=== PATIENT | male | born 1950 | race Caucasian/White ===

== ENCOUNTER 2016-08-27 13:37 | Inpatient (IN) | payer BC ==
[2016-08-27] MEDS ORDERED: Sodium Chloride 0.9% 2.5 ML Syringe FLUSH PRN ×2 (14:07)
[2016-08-27] MEDS ORDERED: Sodium Chloride 0.9% 10 ML Syringe FLUSH PRN ×2 (14:07)
[2016-08-27] MEDS ORDERED: Sodium Chloride 0.9% 1,000 ML IV ONE ×3 (14:07→15:25)
[2016-08-27 14:25] LABS: CHLORIDE,CL 102 mmol/L (98-110); SODIUM,NA 137 mmol/L (136-146)
[2016-08-27] MEDS ORDERED: Acetaminophen 500 MG Tab PO ONE (14:33)
--- NOTE | 2016-08-27 15:09 | EDM.PDOC ---
ED HPI GENERAL MEDICAL PROBLEM - General Chief Complaint: General Stated Complaint: PT WOULD LIKE TO GET CHECK(SICK) Time Seen by Provider: 08/27/16 14:14 Source of Information: Reports: Patient, Significant Other History Limitations: Reports: No limitations - History of Present Illness INITIAL COMMENTS - FREE TEXT/NARRATIVE: HISTORY AND PHYSICAL: History of present illness: [Patient is a 65-year-old male with a past medical history prostate cancer last chemotherapy treatment 3 weeks ago now comes to the emergency department complaining of fever and chills today. Patient denies headache or stiff neck productive cough or abdominal pain. He does not have flank pain. patient was told yesterday that he has urinary tract infection during a visit to his urologist and he was started on an antibiotic that he can't remember the name of. Symptoms worsening today. Patient self catheterizes himself because of a high urine residual. He is only able to spontaneously put out a small amount of urine. Review of systems: As per history of present illness and below otherwise all systems reviewed and negative. Past medical history: As per history of present illness and as reviewed below otherwise noncontributory. Surgical history: As per history of present illness and as reviewed below otherwise noncontributory. Social history: No reported history of drug or alcohol abuse. Family history: As per history of present illness and as reviewed below otherwise noncontributory. Physical exam: Fatigued appearing patient/ nad HEENT: Atraumatic, normocephalic, pupils reactive, negative for conjunctival pallor or scleral icterus, mucous membranes I, throat clear, neck supple, nontender, trachea midline. Lungs: Clear to auscultation, breath sounds equal bilaterally, chest nontender. Heart: S1S2, regular, negative for clicks, rubs, or JVD. Tachycardia at 150 a flutter with 21 block on monitor and EKG Abdomen: Soft, nondistended, nontender. Negative for masses or hepatosplenomegaly. Negative for costovertebral tenderness. Pelvis: Stable nontender. Genitourinary: Deferred. Rectal: Deferred. Extremities: Atraumatic, negative for cords or calf pain. Neurovascular unremarkable. Neuro: Awake, alert, oriented. cranial nerves grossly intact. Cerebellum unremarkable. Motor and sensory unremarkable throughout. Exam nonfocal. Diagnostics: [] Therapeutics: [] Impression: [] Plan: [] Definitive disposition and diagnosis as appropriate pending reevaluation and review of above. - Related Data Allergies Allergy/AdvReac Type Severity Reaction Status Date / Time No Known Allergies Allergy Verified 08/27/16 13:45 Past Medical History Oncologic (Cancer) History: Reports: Prostate, Other (see below) Other Oncologic History: undergoing chemo treatment - Past Surgical History HEENT Surgical History: Reports: Other (see below) Other HEENT Surgeries/Procedures: Ear surgery Social & Family History - Family History Family Medical History: Noncontributory - Tobacco Use Smoking Status *Q: Never Smoker - Recreational Drug Use Recreational Drug Use: No ED ROS GENERAL - Review of Systems Review Of Systems: See Below (Per history of present illness) ED EXAM, GENERAL - Physical Exam Exam: See Below (Per history of present illness) Course - Vital Signs Text/Narrative:: Signs and symptoms consistent with Serzone sepsis. A flutter resolved to normal sinus rhythm with tachycardia improved beneath 120 after 2 L of IV fluid. Fluids continuing. Cultures pending. Urinalysis negative for infection. Empiric coverage for sepsis of unknown origin initiated. Patient aware that his random blood glucose of 296 is consistent with new onset type 2 diabetes. By mouth metformin given. Case discussed with Dr. Moffett and his resident aware of findings and agree with Zosyn vancomycin coverage or sepsis of unknown cause. Patient stable on multiple reexams. Chest x-ray interpreted by me shows chronic changes with mild atelectasis no infiltrate, no acute disease. Initial EKG upon arrival at 1:42 PM atrial flutter with 21 block rate of 150. Normal axis. Nonspecific ST and T-wave findings. No STEMI Repeat EKG at 1646 normal sinus tachycardia at 119. Normal axis no STEMI. Critical care 74 minutes. Multiple bedside reevaluation with close surveillance following improvement tachycardia with IV fluid administration and following clinical status the patient with tachycardia acidosis Serzone sepsis to rule out evolving septic shock and hemodynamic instability Last Recorded V/S: Last Vital Signs Temp 38.1 C 08/27/16 17:28 Pulse 78 08/27/16 17:28 Resp 16 08/27/16 17:28 BP 116/78 08/27/16 17:28 Pulse Ox 98 08/27/16 17:28 - Orders/Labs/Meds Orders: Active Orders 24 hr Category Date Time Status EKG Documentation Completion [RC] STAT Care 08/27/16 14:07 Active Wen Catheter Insertion [Insert Urinary Catheter] [OM. Care 08/27/16 14:15 Ordered PC] Q24H Peripheral IV Care [RC] . DIRECTED Care 08/27/16 14:07 Active Urinary Catheter Assessment [RC] ASDIRECTED Care 08/27/16 14:10 Active CULTURE BLOOD [BC] Stat Lab 08/27/16 14:19 Received CULTURE BLOOD [BC] Stat Lab 08/27/16 14:31 Received Sodium Chloride 0.9% [Saline Flush] Med 08/27/16 14:07 Active 10 ml FLUSH ASDIRECTED PRN Sodium Chloride 0.9% [Saline Flush] Med 08/27/16 14:07 Active 2.5 ml FLUSH ASDIRECTED PRN Blood Culture x2 Reflex Set [OM.PC] Stat Oth 08/27/16 14:09 Ordered Peripheral IV Insertion Adult [OM.PC] Stat Oth 08/27/16 14:07 Ordered Medication Orders Acetaminophen (Tylenol) 650 mg PO Q6H PRN PRN Reason: Pain Enoxaparin Sodium (Lovenox) 40 mg SUBCUT DAILY TARAH Sodium Chloride (Normal Saline) 1,000 mls @ 175 mls/hr IV ASDIRECTED TARAH Levofloxacin/Dextrose 750 mg/ (Premix) 150 mls @ 100 mls/hr IV Q24H TARAH Piperacillin Sod/Tazobactam (Sod 3.375 gm/ Sodium Chloride) 50 mls @ 100 mls/ hr IV Q6H TARAH Vancomycin HCl 1,500 mg/ (Sodium Chloride) 500 mls @ 333.333 mls/hr IV Q12H TARAH Magnesium Sulfate 4 gm/ Premix 100 mls @ 50 mls/hr IV ONETIME ONE Stop: 08/27/16 18:54 Insulin Aspart (Novolog) 0 unit SUBCUT TIDAC TARAH PRN Reason: Protocol Ondansetron HCl (Zofran) 4 mg IVPUSH Q4H PRN PRN Reason: Nausea Sodium Chloride (Saline Flush) 10 ml FLUSH ASDIRECTED PRN PRN Reason: Keep Vein Open Last Admin: 08/27/16 14:38 Dose: 10 ml Sodium Chloride (Saline Flush) 2.5 ml FLUSH ASDIRECTED PRN PRN Reason: Keep Vein Open Last Admin: 08/27/16 14:38 Dose: 2.5 ml Vancomycin HCl (Pharmacy To Dose - Vancomycin) 1 dose .XX ASDIRECTED [facility] Labs: Laboratory Tests 08/27/16 08/27/16 08/27/16 Range/Units 13:52 13:52 13:52 WBC 19.38 H (4.0-11.0) K/uL RBC 4.44 L (4.50-5.90) M/uL Hgb 12.6 L (13.0-17.0) g/dL Hct 38.4 (38.0-50.0) % MCV 86.5 (80.0-98.0) fL MCH 28.4 (27.0-32.0) pg MCHC 32.8 (31.0-37.0) g/dL RDW Std Deviation 54.2 (28.0-62.0) fl RDW Coeff of Silvia 17 H (11.0-15.0) % Plt Count 264 (150-400) K/uL MPV 9.20 (7.40-12.00) fL Neut % (Auto) 93.2 H (48.0-80.0) % Lymph % (Auto) 6.0 L (16.0-40.0) % [place] % (Auto) 0.5 (0.0-15.0) % Eos % (Auto) 0.1 (0.0-7.0) % Baso % (Auto) 0.2 (0.0-1.5) % Neut # 18.1 H (1.4-5.7) K/uL Lymph # 1.2 (0.6-2.4) K/uL [place] # 0.1 (0.0-0.8) K/uL Eos # 0.0 (0.0-0.7) K/uL Baso # 0.0 (0.0-0.1) K/uL Nucleated RBC % 0.0 /100WBC Nucleated RBCs # 0 K/uL Lactate (0.20-2.00) mmol/L Sodium 137 (136-146) mmol/L Potassium 4.2 (3.5-5.1) mmol/L Chloride 102 (98-110) mmol/L Carbon Dioxide 19 L (21-31) mmol/L BUN 16 (6.0-23.0) mg/dL Creatinine 1.2 (0.6-1.5) mg/dL Est Cr Clr Drug Dosing 60.96 mL/min Estimated GFR (MDRD) > 60.0 ml/min Glucose 296 H (60-110) mg/dL Hemoglobin A1c (0.0-6.0) % Calcium 9.6 (8.8-10.8) mg/dL Magnesium (1.5-2.3) mEq/L Total Bilirubin 0.4 (0.1-1.5) mg/dL AST 21 (5-40) IU/L ALT 23 (8-54) IU/L Alkaline Phosphatase 127 (40-150) Troponin I < 0.10 (0.0-0.29) NG/ML Total Protein 8.3 H (6.0-8.0) g/dL Albumin 4.2 (3.4-4.8) g/dL Globulin 4.1 H (2.0-3.5) g/dL Albumin/Globulin Ratio 1.0 L (1.3-2.8) Urine Color Urine Appearance Urine pH (5.0-8.0) Ur Specific [place] (1.001-1.035) Urine Protein (NEGATIVE) mg/dL Urine Glucose (UA) (NEGATIVE) mg/dL Urine Ketones (NEGATIVE) mg/dL Urine Occult Blood (NEGATIVE) Urine Nitrite (NEGATIVE) Urine Bilirubin (NEGATIVE) Urine Urobilinogen (<2.0) EU/dL Ur Leukocyte Esterase (NEGATIVE) Urine RBC (0-2/HPF) Urine WBC (0-5/HPF) Ur Epithelial Cells (NONE-FEW) Urine Bacteria (NEGATIVE) 08/27/16 08/27/16 08/27/16 Range/Units 13:52 13:52 14:05 WBC (4.0-11.0) K/uL RBC (4.50-5.90) M/uL Hgb (13.0-17.0) g/dL Hct (38.0-50.0) % MCV (80.0-98.0) fL MCH (27.0-32.0) pg MCHC (31.0-37.0) g/dL RDW Std Deviation (28.0-62.0) fl RDW Coeff of Silvia (11.0-15.0) % Plt Count (150-400) K/uL MPV (7.40-12.00) fL Neut % (Auto) (48.0-80.0) % Lymph % (Auto) (16.0-40.0) % [place] % (Auto) (0.0-15.0) % Eos % (Auto) (0.0-7.0) % Baso % (Auto) (0.0-1.5) % Neut # (1.4-5.7) K/uL Lymph # (0.6-2.4) K/uL [place] # (0.0-0.8) K/uL Eos # (0.0-0.7) K/uL Baso # (0.0-0.1) K/uL Nucleated RBC % /100WBC Nucleated RBCs # K/uL Lactate (0.20-2.00) mmol/L Sodium (136-146) mmol/L Potassium (3.5-5.1) mmol/L Chloride (98-110) mmol/L Carbon Dioxide (21-31) mmol/L BUN (6.0-23.0) mg/dL Creatinine (0.6-1.5) mg/dL Est Cr Clr Drug Dosing mL/min Estimated GFR (MDRD) ml/min Glucose (60-110) mg/dL Hemoglobin A1c 10.1 H (0.0-6.0) % Calcium (8.8-10.8) mg/dL Magnesium 1.2 L (1.5-2.3) mEq/L Total Bilirubin (0.1-1.5) mg/dL AST (5-40) IU/L ALT (8-54) IU/L Alkaline Phosphatase (40-150) Troponin I (0.0-0.29) NG/ML Total Protein (6.0-8.0) g/dL Albumin (3.4-4.8) g/dL Globulin (2.0-3.5) g/dL Albumin/Globulin Ratio (1.3-2.8) Urine Color YELLOW Urine Appearance SLT CLOUDY Urine pH 5.0 (5.0-8.0) Ur Specific [place] 1.025 (1.001-1.035) Urine Protein TRACE (NEGATIVE) mg/dL Urine Glucose (UA) >=1000 (NEGATIVE) mg/dL Urine Ketones NEGATIVE (NEGATIVE) mg/dL Urine Occult Blood TRACE-INTACT (NEGATIVE) Urine Nitrite NEGATIVE (NEGATIVE) Urine Bilirubin NEGATIVE (NEGATIVE) Urine Urobilinogen 0.2 (<2.0) EU/dL Ur Leukocyte Esterase NEGATIVE (NEGATIVE) Urine RBC 1-2 (0-2/HPF) Urine WBC 5-10 (0-5/HPF) Ur Epithelial Cells RARE (NONE-FEW) Urine Bacteria FEW (NEGATIVE) 08/27/16 Range/Units 14:19 WBC (4.0-11.0) K/uL RBC (4.50-5.90) M/uL Hgb (13.0-17.0) g/dL Hct (38.0-50.0) % MCV (80.0-98.0) fL MCH (27.0-32.0) pg MCHC (31.0-37.0) g/dL RDW Std Deviation (28.0-62.0) fl RDW Coeff of Silvia (11.0-15.0) % Plt Count (150-400) K/uL MPV (7.40-12.00) fL Neut % (Auto) (48.0-80.0) % Lymph % (Auto) (16.0-40.0) % [place] % (Auto) (0.0-15.0) % Eos % (Auto) (0.0-7.0) % Baso % (Auto) (0.0-1.5) % Neut # (1.4-5.7) K/uL Lymph # (0.6-2.4) K/uL [place] # (0.0-0.8) K/uL Eos # (0.0-0.7) K/uL Baso # (0.0-0.1) K/uL Nucleated RBC % /100WBC Nucleated RBCs # K/uL Lactate 3.3 H (0.20-2.00) mmol/L Sodium (136-146) mmol/L Potassium (3.5-5.1) mmol/L Chloride (98-110) mmol/L Carbon Dioxide (21-31) mmol/L BUN (6.0-23.0) mg/dL Creatinine (0.6-1.5) mg/dL Est Cr Clr Drug Dosing mL/min Estimated GFR (MDRD) ml/min Glucose (60-110) mg/dL Hemoglobin A1c (0.0-6.0) % Calcium (8.8-10.8) mg/dL Magnesium (1.5-2.3) mEq/L Total Bilirubin (0.1-1.5) mg/dL AST (5-40) IU/L ALT (8-54) IU/L Alkaline Phosphatase (40-150) Troponin I (0.0-0.29) NG/ML Total Protein (6.0-8.0) g/dL Albumin (3.4-4.8) g/dL Globulin (2.0-3.5) g/dL Albumin/Globulin Ratio (1.3-2.8) Urine Color Urine Appearance Urine pH (5.0-8.0) Ur Specific [place] (1.001-1.035) Urine Protein (NEGATIVE) mg/dL Urine Glucose (UA) (NEGATIVE) mg/dL Urine Ketones (NEGATIVE) mg/dL Urine Occult Blood (NEGATIVE) Urine Nitrite (NEGATIVE) Urine Bilirubin (NEGATIVE) Urine Urobilinogen (<2.0) EU/dL Ur Leukocyte Esterase (NEGATIVE) Urine RBC (0-2/HPF) Urine WBC (0-5/HPF) Ur Epithelial Cells (NONE-FEW) Urine Bacteria (NEGATIVE) Meds: Medications Generic Name Dose Route Start Last Admin Trade Name Freq PRN Reason Stop Dose Admin Acetaminophen 650 mg 08/27/16 16:39 Tylenol PO Q6H PRN Pain Enoxaparin Sodium 40 mg 08/27/16 16:30 Lovenox SUBCUT DAILY [facility] Sodium Chloride 1,000 mls @ 175 mls/hr 08/27/16 16:30 Normal Saline IV ASDIRECTED [facility] Levofloxacin/Dextrose 750 mg/ 150 mls @ 100 mls/hr 08/27/16 16:45 Premix IV Q24H TARAH Piperacillin Sod/Tazobactam 50 mls @ 100 mls/hr 08/27/16 22:30 Sod 3.375 gm/ Sodium Chloride IV Q6H TARAH Vancomycin HCl 1,500 mg/ 500 mls @ 333.333 mls/hr 08/27/16 17:00 Sodium Chloride IV Q12H TARAH Magnesium Sulfate 4 gm/ Premix 100 mls @ 50 mls/hr 08/27/16 16:55 IV 08/27/16 18:54 ONETIME ONE Insulin Aspart 0 unit 08/27/16 17:00 Novolog SUBCUT TIDAC [facility] Protocol Ondansetron HCl 4 mg 08/27/16 16:27 Zofran IVPUSH Q4H PRN Nausea Sodium Chloride 10 ml 08/27/16 14:07 08/27/16 14:38 Saline Flush FLUSH 10 ml ASDIRECTED PRN Administration Keep Vein Open Sodium Chloride 2.5 ml 08/27/16 14:07 08/27/16 14:38 Saline Flush FLUSH 2.5 ml ASDIRECTED PRN Administration Keep Vein Open Vancomycin HCl 1 dose 08/27/16 16:45 Pharmacy To Dose - Vancomycin .XX ASDIRECTED [facility] Discontinued Medications Generic Name Dose Route Start Last Admin Trade Name Freq PRN Reason Stop Dose Admin Acetaminophen 1,000 mg 08/27/16 14:33 08/27/16 14:37 Tylenol Extra Strength PO 08/27/16 14:34 1,000 mg ONETIME ONE Administration Sodium Chloride 1,000 mls @ 999 mls/hr 08/27/16 14:07 08/27/16 14:15 Normal Saline IV 08/27/16 15:07 999 mls/hr .Bolus ONE Administration Sodium Chloride 1,000 mls @ 999 mls/hr 08/27/16 14:08 08/27/16 14:39 Normal Saline IV 08/27/16 15:08 999 mls/hr STAT ONE Administration Piperacillin Sod/Tazobactam 100 mls @ 100 mls/hr 08/27/16 15:23 08/27/16 16: 22 Sod 4.5 gm/ Sodium Chloride IV 08/27/16 16:22 100 mls/hr ONETIME ONE Administration Vancomycin HCl 1,000 mg/ 250 mls @ 167 mls/hr 08/27/16 15:24 08/27/16 17:26 Dextrose/Water IV 08/27/16 16:53 Not Given ONETIME ONE Sodium Chloride 1,000 mls @ 999 mls/hr 08/27/16 15:25 08/27/16 16:23 Normal Saline IV 08/27/16 16:25 999 mls/hr STAT ONE Administration Vancomycin HCl 1 gm/ Sodium 250 mls @ 167 mls/hr 08/27/16 16:30 08/27/16 17: 27 Chloride IV 08/27/16 17:59 Not Given ONETIME ONE Metformin HCl 500 mg 08/27/16 16:09 08/27/16 17:25 Glucophage PO 08/27/16 16:10 Not Given ONETIME ONE Sodium Chloride 2.5 ml 08/27/16 14:07 08/27/16 14:39 Saline Flush FLUSH 2.5 ml ASDIRECTED PRN Administration Keep Vein Open Sodium Chloride 10 ml 08/27/16 14:07 08/27/16 14:39 Saline Flush FLUSH 10 ml ASDIRECTED PRN Administration Keep Vein Open Departure - Departure Time of Disposition: 15:32 Disposition: Admitted As Inpatient 68 Condition: poor Clinical Impression: Fever, Systemic inflammatory response syndrome (SIRS), Sepsis, Tachycardia, New onset atrial flutter, New onset type 2 diabetes mellitus, Leukocytosis - My Orders Last 24 Hours: My Active Orders 08/27/16 14:07 EKG Documentation Completion [RC] STAT Peripheral IV Care [RC] . DIRECTED Sodium Chloride 0.9% [Saline Flush] 10 ml FLUSH ASDIRECTED PRN Sodium Chloride 0.9% [Saline Flush] 2.5 ml FLUSH ASDIRECTED PRN Peripheral IV Insertion Adult [OM.PC] Stat 08/27/16 14:09 Blood Culture x2 Reflex Set [OM.PC] Stat 08/27/16 14:10 Urinary Catheter Assessment [RC] ASDIRECTED 08/27/16 14:15 Wen Catheter Insertion [Insert Urinary Catheter] [OM.PC] Q24H 08/27/16 14:19 CULTURE BLOOD [BC] Stat 08/27/16 14:31 CULTURE BLOOD [BC] Stat - Assessment/Plan Last 24 Hours: My Active Orders 08/27/16 14:07 EKG Documentation Completion [RC] STAT Peripheral IV Care [RC] . DIRECTED Sodium Chloride 0.9% [Saline Flush] 10 ml FLUSH ASDIRECTED PRN Sodium Chloride 0.9% [Saline Flush] 2.5 ml FLUSH ASDIRECTED PRN Peripheral IV Insertion Adult [OM.PC] Stat 08/27/16 14:09 Blood Culture x2 Reflex Set [OM.PC] Stat 08/27/16 14:10 Urinary Catheter Assessment [RC] ASDIRECTED 08/27/16 14:15 Wen Catheter Insertion [Insert Urinary Catheter] [OM.PC] Q24H 08/27/16 14:19 CULTURE BLOOD [BC] Stat 08/27/16 14:31 CULTURE BLOOD [BC] Stat
[2016-08-27] MEDS ORDERED: Piperacillin/Tazobactam 4.5 GM in Sodium Chloride 0.9% 100 ML IV ONE (15:23)
[2016-08-27] MEDS ORDERED: Enoxaparin 40 MG/0.4 ML Syringe SUBCUT SCH (16:30)
[2016-08-27] MEDS: metFORMIN 500 MG Tab PO ONE ×2 (16:31→17:25)
--- NOTE | 2016-08-27 16:42 | PCM.HP ---
H&P History of Present Illness - General Date of Service: 08/27/16 Admit Problem/Dx: Admission Diagnosis/Problem Admission Diagnosis/Problem Fever Source of Information: Patient History Limitations: Reports: No limitations - History of Present Illness Initial Comments - Free Text/Narative: This 65 year old male with pmh of metastatic prostate ca presented to the ED today with fever and chills. He reports he was feeling well until approximately noon today when he started having uncontrollable chills at work. He was recently seen by his Urologist, Dr Lion who obtained a UA and called him yesterday stating something grew on his urine culture. He was started on Bactrim , he has taken 3 doses of this prior to today. He denies any chest pain, palpitations, abdominal pain or urinary symptoms. He does self-catheterize multiple times daily, if he urinates on his own he only gets approximately 50 - 100 mls. He denies any recent URI or fever prior to today. No sore throat of sinus congestion. He feels his mouth is very dry. He did have some SOB when he was having chills. He denies any skin rashes or red warm or open areas to his skin. On August 04 he had his last chemotherapy. He does not have any port or PICC line in place. In the ED, leukocytosis was noted, 19,380, hgb 12.6, lactate 3.3, Na 137, K+ 4.2 , glucose 296. Ua trace blood, negative nitrite, and negative leukocyte esterase , few bacteria. CXR pending. Did have chest, abd/pelvis CT 08/23/2016, chest revealed minimal dependent atelectasis in posterior lung bases, no infiltrates, nodules or masses. Abd/ pelvis noted multiple sclerotic foci in pelvis suspicious for metastatic disease to bone. He will be admitted to ICU for sepsis, fever suspect UTI. - Related Data Allergies/Adverse Reactions: Allergies Allergy/AdvReac Type Severity Reaction Status Date / Time No Known Allergies Allergy Verified 08/27/16 13:45 Past Medical History Cardiovascular History: Reports: Hypertension. Denies: Afib, Blood clots/VTE/ DVT, CAD, Heart Failure, High cholesterol, ID Respiratory History: Reports: None. Denies: Asthma, COPD Gastrointestinal History: Reports: GERD. Denies: GI bleed Genitourinary History: Reports: Prostate disorder, Other (see below) (self catheterizes due to prostate ca). Denies: Chronic renal insuffiency Musculoskeletal History: Reports: None Neurological History: Denies: CVA, Seizure, TIA Psychiatric History: Reports: None Endocrine/Metabolic History: Reports: Obesity/BMI 30+. Denies: Diabetes, type II, Hypothyroidism Oncologic (Cancer) History: Reports: Prostate (last chemo Aug 04, 2016) - Past Surgical History HEENT Surgical History: Reports: Other (see below) Other HEENT Surgeries/Procedures: Ear surgery Social & Family History - Family History Family Medical History: Noncontributory - Tobacco Use Smoking Status *Q: Never Smoker - Recreational Drug Use Recreational Drug Use: No - Living Situation & Occupation Living situation: Reports: Occupation: employed H&P Review of Systems - Review of Systems: Review Of Systems: See Below General: Reports: fever, chills, malaise HEENT: Reports: other (dry mouth). Denies: sinus congestion, sore throat Pulmonary: Reports: Shortness of Breath (had grace SOB with episode of chills ). Denies: Pleuritic Chest Pain, Cough, Sputum Cardiovascular: Denies: chest pain, palpitations, edema, syncope Gastrointestinal: Reports: Constipation (at baseline). Denies: Abdominal pain, Black stool, Bloody stool, Diarrhea, Nausea, Vomiting Genitourinary: Reports: retention (self catheterizes). Denies: dysuria, frequency, burning, pain, flank pain Musculoskeletal: Reports: joint pain (L hip/pelvic pain intermittently recently. ) Skin: Reports: no symptoms. Denies: bruising, rash, erythema Psychiatric: Reports: no symptoms Neurological: Reports: No Symptoms. Denies: Confusion, Headache, Numbness, Paresthesia, Trouble Speaking Hematologic/Lymphatic: Reports: no symptoms Immunologic: Reports: no symptoms Exam - Exam Exam: See Below - Vital Signs Vital Signs: Last Vital Signs Temp 102.7 F H 08/27/16 15:09 Pulse 78 08/27/16 15:09 Resp 16 08/27/16 15:09 BP 137/77 08/27/16 15:09 Pulse Ox 98 08/27/16 15:09 Weight: 92.986 kg - Exam Quality Assessment: supplemental oxygen General: alert, oriented, cooperative HEENT: Nares patent, Posterior pharynx clear, Pupils equal. No: Mucosa moist & pink (tongue dry and cracked, lips dry and cracked) Neck: supple, trachea midline, 2+ carotid pulse wo bruit, full range of motion. No: lymphadenopathy Lungs: Clear to auscultation, Normal respiratory effort. No: Decreased breath sounds, Crackles Cardiovascular: irregular rhythm, tachycardia. No: systolic murmur Abdomen: normal bowel sounds, soft. No: organomegaly, distention, rigidity, rebound, tenderness, hepatomegaly, splenomegaly Back Exam: normal inspection, full range of motion, NT Extremities: normal inspection, normal pulses. No: calf tenderness, edema, increased warmth Peripheral Pulses: 2+: posterior tibial (L), posterior tibial (R), dorsalis pedis (L), dorsalis pedis (R) Skin: warm, dry, intact Neuro Extensive - Mental Status: alert, oriented x3, normal mood/affect, normal cognition, memory intact Psychiatric: alert, normal affect, normal mood - Patient Data Result Diagrams: 08/27/16 13:52 08/27/16 13:52 EKG INTERPRETATION EKG Date: 08/27/16 Rhythm: a-flutter Rate (beats/min): 150 *Q Meaningful Use (ADM) - VTE *Q VTE Criteria *Q: - VTE Risk Assess *Q Each Risk Factor Represents 1 Point: Sepsis, Less than 1 Month, Oral Contraceptives or Hormone Replacement Therapy Total Score 1 Point Risk Factors: 2 Each Risk Factor Represents 2 Points: Age 60 - 74 Years Total Score 2 Point Risk Factors: 2 Each Risk Factor Represents 3 Points: Present Cancer or Chemotherapy Total Score 3 Point Risk Factors: 3 Each Risk Factor Represents 5 Points: None Total Score 5 Point Risk Factors: 0 Venous Thromboembolism Risk Factor Score *Q: 7 - Stroke *Q Stroke Criteria *Q: - AMI *Q AMI Criteria *Q: Problem List Initiated/Reviewed/Updated: Yes Orders Last 24hrs: Active Orders 24 hr Category Date Time Status Blood Glucose Check, Bedside [] TIDAC Care 08/27/16 16:36 Ordered Cardiac Monitoring [] CONTINUOUS Care 08/27/16 16:28 Ordered Height and Weight [] DAILY Care 08/27/16 16:27 Ordered Intake and Output [] QSHIFT Care 08/27/16 16:28 Ordered Oxygen Therapy [] PRN Care 08/27/16 16:27 Ordered Up ad Johanna [RC] ASDIRECTED Care 08/27/16 16:27 Ordered Up to Chair [RC] ASDIRECTED Care 08/27/16 16:27 Ordered VTE/DVT Education [RC] PER UNIT ROUTINE Care 08/27/16 16:27 Ordered Vital Signs [RC] Q4H Care 08/27/16 16:27 Ordered Regular Diet [DIET] Diet 08/27/16 Dinner Ordered CBC WITH AUTO DIFF [HEME] AM Lab 08/28/16 05:11 Ordered CBC WITH AUTO DIFF [HEME] AM Lab 08/29/16 05:11 Ordered CBC WITH AUTO DIFF [HEME] AM Lab 08/30/16 05:11 Ordered CBC WITH AUTO DIFF [HEME] AM Lab 08/31/16 05:11 Ordered COMPREHENSIVE METABOLIC PN,CMP [CHEM] AM Lab 08/28/16 05:11 Ordered COMPREHENSIVE METABOLIC PN,CMP [CHEM] AM Lab 08/29/16 05:11 Ordered COMPREHENSIVE METABOLIC PN,CMP [CHEM] AM Lab 08/30/16 05:11 Ordered COMPREHENSIVE METABOLIC PN,CMP [CHEM] AM Lab 08/31/16 05:11 Ordered CULTURE SPUTUM + SMEAR [RM] Stat Lab 08/27/16 16:27 Uncollected CULTURE URINE [RM] Stat Lab 08/27/16 16:27 Ordered GLYCOSYLATED HEMOGLOBIN,HGBA1C [CHEM] Routine Lab 08/27/16 16:27 Ordered MAGNESIUM [CHEM] Routine Lab 08/27/16 16:31 Ordered Enoxaparin [Lovenox] Med 08/27/16 16:30 Ordered 40 mg SUBCUT DAILY Insulin Aspart [NovoLOG] Med 08/27/16 17:00 Ordered See Protocol SUBCUT TIDAC Levofloxacin/Dextrose 5%-Water [Levaquin in D5W 750 MG/ Med 08/27/16 16:45 Ordered 150 ML] 750 mg Premix Bag 1 bag IV Q24H Ondansetron [Zofran] Med 08/27/16 16:27 Ordered 4 mg IVPUSH Q4H PRN Piperacillin/Tazobactam [Piperacil-Tazobact] 3.375 gm Med 08/27/16 22:30 Ordered Sodium Chloride 0.9% [Normal Saline] 50 ml IV Q6H Sodium Chloride 0.9% [Normal Saline] 1,000 ml Med 08/27/16 16:30 Ordered IV ASDIRECTED Vancomycin Pharmacy to Dose [Pharmacy to Dose - Med 08/27/16 16:45 Ordered Vancomycin] 1 dose .XX ASDIRECTED Vancomycin [Vancocin] 1 gm Med 08/27/16 16:30 Active Sodium Chloride 0.9% [Normal Saline] 250 ml IV ONETIME Resuscitation Status Routine Resus Stat 08/27/16 16:27 Ordered Medication Orders Enoxaparin Sodium (Lovenox) 40 mg SUBCUT DAILY [facility] Vancomycin HCl 1 gm/ Sodium (Chloride) 250 mls @ 167 mls/hr IV ONETIME ONE Stop: 08/27/16 17:59 Sodium Chloride (Normal Saline) 1,000 mls @ 175 mls/hr IV ASDIRECTED [facility] Levofloxacin/Dextrose 750 mg/ (Premix) 150 mls @ 100 mls/hr IV Q24H [facility] Piperacillin Sod/Tazobactam (Sod 3.375 gm/ Sodium Chloride) 50 mls @ 100 mls/ hr IV Q6H [facility] Insulin Aspart (Novolog) 0 unit SUBCUT TIDAC TARAH PRN Reason: Protocol Ondansetron HCl (Zofran) 4 mg IVPUSH Q4H PRN PRN Reason: Nausea Sodium Chloride (Saline Flush) 10 ml FLUSH ASDIRECTED PRN PRN Reason: Keep Vein Open Last Admin: 08/27/16 14:38 Dose: 10 ml Sodium Chloride (Saline Flush) 2.5 ml FLUSH ASDIRECTED PRN PRN Reason: Keep Vein Open Last Admin: 08/27/16 14:38 Dose: 2.5 ml Vancomycin HCl (Pharmacy To Dose - Vancomycin) 1 dose .XX ASDIRECTED [facility] Assessment/Plan Comment:: This 65 year old male admitted with sepsis and fever and suspected UTI. 1. Sepsis: Given 2 L bolus in ED, continue NS 175 for now. Repeat lactate until normalized. Monitor VS. BC, and UC pending. Sputum ordered. 2. UTI: Continue with Vancomycin, Zosyn and Levaquin. UC pending. Awaiting culture from Dr Lion's office. Will place batres due to inability to urinate without catheterization and fluid resuscitation. 3. A flutter: Cardiac monitoring. Will not add antiarrhythmics now, will fluid resuscitate and monitor. Will need chronic anticoagulation. 4. Prostate ca: Mets to bones. Will monitor. Is on Lupron, Flomax 5. Hyperglycemia: Obtain A1c. Will add Novolog SSI low for now, monitor BS TIDAC. 6. Hypomagnesemia: 1.2, will replace with 4 gm today. Monitor daily. VTE: Lovenox. Dispo: 2-4 days pending improvement.
[2016-08-27] MEDS ORDERED: Levofloxacin/Dextrose 5%-Water 750 MG in Premix Bag 1 BAG IV SCH (16:45)
--- NOTE | 2016-08-27 16:48 | CR ---
EXAMINATION: Portable chest radiograph. HISTORY: Chest eval. FINDINGS: The trachea is midline. There are low lung volumes. The cardiomediastinal silhouette is within chris l limits. There is possibly a trace left basilar atelectasis and/or infiltrate. No pleural effusion or pneumothorax. Osseous structures appear unremarkable. IMPRESSION: Possible trace left basilar atelectasis and/or infiltrate, likely accentuated by low lung volumes.
[2016-08-27] MEDS ORDERED: Magnesium Sulfate/Water 4 GM in Premix Bag 1 BAG IV ONE ×2 (16:55→18:00)
[2016-08-27] MEDS: Enoxaparin 40 MG/0.4 ML Syringe SUBCUT SCH (18:00)
[2016-08-27] MEDS: Insulin Aspart 100 Units/ML 3 ML Pen SUBCUT SCH (18:20)
[2016-08-27] MEDS: Acetaminophen 325 MG Tab PO PRN (20:17)
[2016-08-27] MEDS: Levofloxacin/Dextrose 5%-Water 750 MG in Premix Bag 1 BAG IV SCH (21:35)
[2016-08-27] MEDS: Piperacillin/Tazobactam 3.375 GM in Sodium Chloride 0.9% 50 ML IV SCH (22:52)
[2016-08-28] MEDS: Sodium Chloride 0.9% 1,000 ML IV SCH ×2 (02:13→10:00)
[2016-08-28] MEDS: Acetaminophen 325 MG Tab PO PRN ×2 (02:21→14:20)
[2016-08-28] MEDS: Piperacillin/Tazobactam 3.375 GM in Sodium Chloride 0.9% 50 ML IV SCH ×4 (04:29→22:56)
[2016-08-28 06:44] LABS: CHLORIDE,CL 107 mmol/L (98-110); SODIUM,NA 133 mmol/L (136-146)
[2016-08-28] MEDS: Insulin Aspart 100 Units/ML 3 ML Pen SUBCUT SCH ×4 (08:19→19:54)
[2016-08-28] MEDS: Ondansetron 4 MG/2 ML SDV IVPUSH PRN (08:24)
[2016-08-28] MEDS ORDERED: Potassium Chloride 10% 20 MEQ/15 ML Soln 30 ML UD Cup PO ONE ×2 (10:16→15:25)
[2016-08-28] MEDS ORDERED: Magnesium Sulfate/Water 2 GM in Premix Bag 1 BAG IV ONE (10:25)
[2016-08-28] MEDS: NS + KCl 20mEq/L 1,000 ML IV SCH ×2 (10:59→23:32)
--- NOTE | 2016-08-28 11:14 | PCM.PN ---
- Review of Systems Systems Review Comment:: earlier this morning there was some confusion and tachypnea, but patient is orientated x3 and denies any shortness of breath - Patient Data Vitals - most recent: Last Vital Signs Temp 38.2 C H 08/28/16 04:00 Pulse 106 H 08/28/16 07:00 Resp 21 H 08/28/16 07:00 BP 133/63 08/28/16 07:00 Pulse Ox 94 L 08/28/16 07:00 Weight - most recent: 93 kg I&O - last 24 hours: Intake & Output 08/27/16 08/28/16 08/28/16 22:59 06:59 14:59 Intake Total 750 1550 Output Total 1200 Balance 750 350 Lab Results last 24 hrs: Laboratory Results - last 24 hr 08/27/16 08/27/16 08/28/16 Range/Units 17:00 18:08 05:30 WBC 19.75 H (4.0-11.0) K/uL RBC 3.51 L (4.50-5.90) M/uL Hgb 10.0 L (13.0-17.0) g/dL Hct 30.2 L (38.0-50.0) % MCV 86.0 (80.0-98.0) fL MCH 28.5 (27.0-32.0) pg MCHC 33.1 (31.0-37.0) g/dL RDW Std Deviation 54.9 (28.0-62.0) fl RDW Coeff of Silvia 18 H (11.0-15.0) % Plt Count 230 (150-400) K/uL MPV 9.50 (7.40-12.00) fL Neut % (Auto) 93.5 H (48.0-80.0) % Lymph % (Auto) 2.4 L (16.0-40.0) % Upton % (Auto) 3.8 (0.0-15.0) % Eos % (Auto) 0.1 (0.0-7.0) % Baso % (Auto) 0.2 (0.0-1.5) % Neut # 18.5 H (1.4-5.7) K/uL Lymph # 0.5 L (0.6-2.4) K/uL Upton # 0.8 (0.0-0.8) K/uL Eos # 0.0 (0.0-0.7) K/uL Baso # 0.0 (0.0-0.1) K/uL Nucleated RBC % 0.0 /100WBC Nucleated RBCs # 0 K/uL Lactate 1.1 (0.20-2.00) mmol/L Sodium (136-146) mmol/L Potassium (3.5-5.1) mmol/L Chloride (98-110) mmol/L Carbon Dioxide (21-31) mmol/L BUN (6.0-23.0) mg/dL Creatinine (0.6-1.5) mg/dL Est Cr Clr Drug Dosing Estimated GFR (MDRD) ml/min Glucose (60-110) mg/dL POC Glucose 249 H (60-110) mg/dL Calcium (8.8-10.8) mg/dL Magnesium (1.5-2.3) mEq/L Total Bilirubin (0.1-1.5) mg/dL AST (5-40) IU/L ALT (8-54) IU/L Alkaline Phosphatase (40-150) Total Protein (6.0-8.0) g/dL Albumin (3.4-4.8) g/dL Globulin (2.0-3.5) g/dL Albumin/Globulin Ratio (1.3-2.8) 08/28/16 08/28/16 08/28/16 Range/Units 05:30 05:30 08:14 WBC (4.0-11.0) K/uL RBC (4.50-5.90) M/uL Hgb (13.0-17.0) g/dL Hct (38.0-50.0) % MCV (80.0-98.0) fL MCH (27.0-32.0) pg MCHC (31.0-37.0) g/dL RDW Std Deviation (28.0-62.0) fl RDW Coeff of Silvia (11.0-15.0) % Plt Count (150-400) K/uL MPV (7.40-12.00) fL Neut % (Auto) (48.0-80.0) % Lymph % (Auto) (16.0-40.0) % Upton % (Auto) (0.0-15.0) % Eos % (Auto) (0.0-7.0) % Baso % (Auto) (0.0-1.5) % Neut # (1.4-5.7) K/uL Lymph # (0.6-2.4) K/uL Upton # (0.0-0.8) K/uL Eos # (0.0-0.7) K/uL Baso # (0.0-0.1) K/uL Nucleated RBC % /100WBC Nucleated RBCs # K/uL Lactate (0.20-2.00) mmol/L Sodium 133 L (136-146) mmol/L Potassium 3.0 L (3.5-5.1) mmol/L Chloride 107 (98-110) mmol/L Carbon Dioxide 17 L (21-31) mmol/L BUN 13 (6.0-23.0) mg/dL Creatinine 1.2 (0.6-1.5) mg/dL Est Cr Clr Drug Dosing TNP Estimated GFR (MDRD) > 60.0 ml/min Glucose 295 H (60-110) mg/dL POC Glucose 229 H (60-110) mg/dL Calcium 7.6 L (8.8-10.8) mg/dL Magnesium 1.7 (1.5-2.3) mEq/L Total Bilirubin 0.6 (0.1-1.5) mg/dL AST 30 (5-40) IU/L ALT 25 (8-54) IU/L Alkaline Phosphatase 101 (40-150) Total Protein 6.3 (6.0-8.0) g/dL Albumin 3.1 L (3.4-4.8) g/dL Globulin 3.2 (2.0-3.5) g/dL Albumin/Globulin Ratio 1.0 L (1.3-2.8) Homero Results last 24 hrs: Microbiology 08/28/16 05:40 Anaerobic Blood Culture - Final Blood - Arm, Right Med Orders - Current: Current Medications Acetaminophen (Tylenol) 650 mg PO Q6H PRN PRN Reason: Pain Last Admin: 08/28/16 02:21 Dose: 650 mg Enoxaparin Sodium (Lovenox) 40 mg SUBCUT Q24H [facility]AR[facility] Last Admin: 08/27/16 18:00 Dose: 40 mg Piperacillin Sod/Tazobactam (Sod 3.375 gm/ Sodium Chloride) 50 mls @ 100 mls/ hr IV Q6H [facility] Last Admin: 08/28/16 10:04 Dose: 100 mls/hr Vancomycin HCl 1,500 mg/ (Sodium Chloride) 500 mls @ 333.333 mls/hr IV Q12H [facility] Last Admin: 08/28/16 05:00 Dose: 333.333 mls/hr Levofloxacin/Dextrose 750 mg/ (Premix) 150 mls @ 100 mls/hr IV Q24H [facility] Last Admin: 08/27/16 21:35 Dose: 100 mls/hr Potassium Chloride/Sodium Chloride (Normal Saline With 20 Meq Kcl) 1,000 mls @ 150 mls/hr IV ASDIRECTED [facility] Last Admin: 08/28/16 10:59 Dose: 150 mls/hr Magnesium Sulfate 2 gm/ Premix 50 mls @ 50 mls/hr IV ONETIME ONE Stop: 08/28/16 11:24 Last Admin: 08/28/16 10:58 Dose: 50 mls/hr Insulin Aspart (Novolog) 0 unit SUBCUT TIDAC [facility]AR[facility] PRN Reason: Protocol Last Admin: 08/28/16 08:19 Dose: 2 units Ondansetron HCl (Zofran) 4 mg IVPUSH Q4H PRN PRN Reason: Nausea Last Admin: 08/28/16 08:24 Dose: 4 mg Sodium Chloride (Saline Flush) 10 ml FLUSH ASDIRECTED PRN PRN Reason: Keep Vein Open Last Admin: 08/27/16 14:38 Dose: 10 ml Sodium Chloride (Saline Flush) 2.5 ml FLUSH ASDIRECTED PRN PRN Reason: Keep Vein Open Last Admin: 08/27/16 14:38 Dose: 2.5 ml Vancomycin HCl (Pharmacy To Dose - Vancomycin) 1 dose .XX ASDIRECTED [facility] Discontinued Medications Acetaminophen (Tylenol Extra Strength) 1,000 mg PO ONETIME ONE Stop: 08/27/16 14:34 Last Admin: 08/27/16 14:37 Dose: 1,000 mg Enoxaparin Sodium (Lovenox) 40 mg SUBCUT DAILY [facility] Last Admin: 08/27/16 18:18 Dose: Not Given Sodium Chloride (Normal Saline) 1,000 mls @ 999 mls/hr IV .Bolus ONE Stop: 08/27/16 15:07 Last Admin: 08/27/16 14:15 Dose: 999 mls/hr Sodium Chloride (Normal Saline) 1,000 mls @ 999 mls/hr IV STAT ONE Stop: 08/27/16 15:08 Last Admin: 08/27/16 14:39 Dose: 999 mls/hr Piperacillin Sod/Tazobactam (Sod 4.5 gm/ Sodium Chloride) 100 mls @ 100 mls/hr IV ONETIME ONE Stop: 08/27/16 16:22 Last Admin: 08/27/16 16:22 Dose: 100 mls/hr Vancomycin HCl 1,000 mg/ (Dextrose/Water) 250 mls @ 167 mls/hr IV ONETIME ONE Stop: 08/27/16 16:53 Last Admin: 08/27/16 17:26 Dose: Not Given Sodium Chloride (Normal Saline) 1,000 mls @ 999 mls/hr IV STAT ONE Stop: 08/27/16 16:25 Last Admin: 08/27/16 16:23 Dose: 999 mls/hr Vancomycin HCl 1 gm/ Sodium (Chloride) 250 mls @ 167 mls/hr IV ONETIME ONE Stop: 08/27/16 17:59 Last Admin: 08/27/16 17:27 Dose: Not Given Sodium Chloride (Normal Saline) 1,000 mls @ 175 mls/hr IV ASDIRECTED [facility] Last Admin: 08/28/16 10:00 Dose: 175 mls/hr Levofloxacin/Dextrose 750 mg/ (Premix) 150 mls @ 100 mls/hr IV Q24H [facility] Last Admin: 08/27/16 18:18 Dose: Not Given Magnesium Sulfate 4 gm/ Premix 100 mls @ 50 mls/hr IV ONETIME ONE Stop: 08/27/16 18:54 Last Admin: 08/27/16 18:18 Dose: Not Given Magnesium Sulfate 4 gm/ Premix 100 mls @ 50 mls/hr IV ONETIME ONE Stop: 08/27/16 19:59 Last Admin: 08/27/16 18:00 Dose: 50 mls/hr Metformin HCl (Glucophage) 500 mg PO ONETIME ONE Stop: 08/27/16 16:10 Last Admin: 08/27/16 17:25 Dose: Not Given Potassium Chloride (Potassium Chloride) 40 meq PO ONETIME ONE Stop: 08/28/16 10:17 Last Admin: 08/28/16 10:58 Dose: 40 meq Sodium Chloride (Saline Flush) 2.5 ml FLUSH ASDIRECTED PRN PRN Reason: Keep Vein Open Last Admin: 08/27/16 14:39 Dose: 2.5 ml Sodium Chloride (Saline Flush) 10 ml FLUSH ASDIRECTED PRN PRN Reason: Keep Vein Open Last Admin: 08/27/16 14:39 Dose: 10 ml - Exam General: alert, oriented Lungs: Clear to auscultation, Normal respiratory effort Cardiovascular: Regular Rate, Regular Rhythm Abdomen: bowel sounds present, soft, no tenderness, no distension Extremities: no edema Skin: warm, dry, intact Neurological: no new focal deficit - Problem List Review Problem List Initiated/Reviewed/Updated: Yes - My Orders Last 24 Hours: My Active Orders 08/27/16 17:00 Vancomycin 1,500 mg Sodium Chloride 0.9% [Normal Saline] 500 ml IV Q12H 08/28/16 10:25 Magnesium Sulfate/Water [Magnesium Sulfate 2 GM in Water 50 ML] 2 gm Premix Bag 1 bag IV ONETIME 08/28/16 11:07 Abdomen wo Cont [CT] Routine Chest wo Cont [CT] Routine 08/29/16 04:30 VANCOMYCIN TROUGH [CHEM] Routine - Plan Plan:: This 65 year old male admitted with sepsis and fever and suspected UTI. Sepsis: lactic acid has normalized, gram negative rods growing in cultures. will continue Vancomycin, zosyn and levaquin, suspect UTI, will CT abdomen to look for complicating features and eval for possible other sources A flutter: atrial flutter on admission but now is normal sinus, Prostate ca: Mets to bones. Will monitor. Is on Lupron, Flomax Hyperglycemia: Will add Novolog SSI low for now, monitor BS TIDAC. Hypomagnesemia/Hyokalmeia: replacing. VTE: Lovenox. Dispo: 2-4 days pending improvement.
[2016-08-28 14:42] LABS: CHLORIDE,CL 109 mmol/L (98-110); SODIUM,NA 133 mmol/L (136-146)
[2016-08-28] MEDS: Enoxaparin 40 MG/0.4 ML Syringe SUBCUT SCH (18:36)
[2016-08-28] MEDS ORDERED: Insulin Glargine,Human Rec. Analog 100 Units/ML 3 ML Pen SUBCUT ONE (18:45)
[2016-08-28] MEDS: Levofloxacin/Dextrose 5%-Water 750 MG in Premix Bag 1 BAG IV SCH (21:19)
[2016-08-29] MEDS: Piperacillin/Tazobactam 3.375 GM in Sodium Chloride 0.9% 50 ML IV SCH ×4 (03:42→22:57)
[2016-08-29] MEDS: Acetaminophen 325 MG Tab PO PRN ×3 (03:43→20:09)
[2016-08-29 04:59] LABS: CHLORIDE,CL 115 mmol/L (98-110); SODIUM,NA 138 mmol/L (136-146)
[2016-08-29] MEDS: Insulin Aspart 100 Units/ML 3 ML Pen SUBCUT SCH ×3 (08:06→17:52)
[2016-08-29] MEDS: NS + KCl 20mEq/L 1,000 ML IV SCH (08:24)
[2016-08-29] MEDS: Ondansetron 4 MG/2 ML SDV IVPUSH PRN (10:09)
[2016-08-29] MEDS ORDERED: Albuterol/Ipratropium 3.0-0.5 MG/3 ML Neb Soln NEB PRN (10:28)
[2016-08-29] MEDS: Lactated Ringers 1,000 ML IV SCH (12:05)
--- NOTE | 2016-08-29 12:06 | PCM.PN ---
- Review of Systems Systems Review Comment:: feeling better, does still have fevers and chills. breathing improved. - Patient Data Vitals - most recent: Last Vital Signs Temp 36.6 C 08/29/16 04:00 Pulse 92 08/29/16 09:00 Resp 21 H 08/29/16 09:00 BP 131/69 08/29/16 09:00 Pulse Ox 98 08/29/16 09:00 Weight - most recent: 93 kg I&O - last 24 hours: Intake & Output 08/28/16 08/29/16 08/29/16 22:59 06:59 14:59 Intake Total 1400 1650 500 Output Total 1275 1000 Balance 125 650 500 Lab Results last 24 hrs: Laboratory Results - last 24 hr 08/28/16 08/28/16 08/28/16 Range/Units 14:12 17:29 19:56 WBC (4.0-11.0) K/uL RBC (4.50-5.90) M/uL Hgb (13.0-17.0) g/dL Hct (38.0-50.0) % MCV (80.0-98.0) fL MCH (27.0-32.0) pg MCHC (31.0-37.0) g/dL RDW Std Deviation (28.0-62.0) fl RDW Coeff of Silvia (11.0-15.0) % Plt Count (150-400) K/uL MPV (7.40-12.00) fL Neut % (Auto) (48.0-80.0) % Lymph % (Auto) (16.0-40.0) % [place] % (Auto) (0.0-15.0) % Eos % (Auto) (0.0-7.0) % Baso % (Auto) (0.0-1.5) % Neut # (1.4-5.7) K/uL Lymph # (0.6-2.4) K/uL [place] # (0.0-0.8) K/uL Eos # (0.0-0.7) K/uL Baso # (0.0-0.1) K/uL Nucleated RBC % /100WBC Nucleated RBCs # K/uL Sodium 133 L (136-146) mmol/L Potassium 3.3 L 3.9 (3.5-5.1) mmol/L Chloride 109 (98-110) mmol/L Carbon Dioxide 14 L (21-31) mmol/L BUN 15 (6.0-23.0) mg/dL Creatinine 1.4 (0.6-1.5) mg/dL Est Cr Clr Drug Dosing TNP Estimated GFR (MDRD) 51.2 ml/min Glucose 364 H (60-110) mg/dL POC Glucose 302 H (60-110) mg/dL Calcium 7.4 L (8.8-10.8) mg/dL Magnesium (1.5-2.3) mEq/L Total Bilirubin (0.1-1.5) mg/dL AST (5-40) IU/L ALT (8-54) IU/L Alkaline Phosphatase (40-150) Total Protein (6.0-8.0) g/dL Albumin (3.4-4.8) g/dL Globulin (2.0-3.5) g/dL Albumin/Globulin Ratio (1.3-2.8) Vancomycin Trough (5-15) ug/mL 08/29/16 08/29/16 08/29/16 Range/Units 04:30 04:30 04:30 WBC 12.96 H (4.0-11.0) K/uL RBC 3.28 L (4.50-5.90) M/uL Hgb 9.2 L (13.0-17.0) g/dL Hct 28.2 L (38.0-50.0) % MCV 86.0 (80.0-98.0) fL MCH 28.0 (27.0-32.0) pg MCHC 32.6 (31.0-37.0) g/dL RDW Std Deviation 55.9 (28.0-62.0) fl RDW Coeff of Silvia 18 H (11.0-15.0) % Plt Count 162 (150-400) K/uL MPV 9.20 (7.40-12.00) fL Neut % (Auto) 89.1 H (48.0-80.0) % Lymph % (Auto) 5.3 L (16.0-40.0) % [place] % (Auto) 5.4 (0.0-15.0) % Eos % (Auto) 0.1 (0.0-7.0) % Baso % (Auto) 0.1 (0.0-1.5) % Neut # 11.6 H (1.4-5.7) K/uL Lymph # 0.7 (0.6-2.4) K/uL [place] # 0.7 (0.0-0.8) K/uL Eos # 0.0 (0.0-0.7) K/uL Baso # 0.0 (0.0-0.1) K/uL Nucleated RBC % 0.0 /100WBC Nucleated RBCs # 0 K/uL Sodium 138 (136-146) mmol/L Potassium 3.7 (3.5-5.1) mmol/L Chloride 115 H (98-110) mmol/L Carbon Dioxide 15 L (21-31) mmol/L BUN 13 (6.0-23.0) mg/dL Creatinine 0.9 (0.6-1.5) mg/dL Est Cr Clr Drug Dosing TNP Estimated GFR (MDRD) > 60.0 ml/min Glucose 194 H (60-110) mg/dL POC Glucose (60-110) mg/dL Calcium 7.2 L (8.8-10.8) mg/dL Magnesium 2.2 (1.5-2.3) mEq/L Total Bilirubin 0.5 (0.1-1.5) mg/dL AST 31 (5-40) IU/L ALT 37 (8-54) IU/L Alkaline Phosphatase 75 (40-150) Total Protein 5.9 L (6.0-8.0) g/dL Albumin 2.8 L (3.4-4.8) g/dL Globulin 3.1 (2.0-3.5) g/dL Albumin/Globulin Ratio 0.9 L (1.3-2.8) Vancomycin Trough (5-15) ug/mL 08/29/16 08/29/16 08/29/16 Range/Units 04:30 07:52 11:52 WBC (4.0-11.0) K/uL RBC (4.50-5.90) M/uL Hgb (13.0-17.0) g/dL Hct (38.0-50.0) % MCV (80.0-98.0) fL MCH (27.0-32.0) pg MCHC (31.0-37.0) g/dL RDW Std Deviation (28.0-62.0) fl RDW Coeff of Silvia (11.0-15.0) % Plt Count (150-400) K/uL MPV (7.40-12.00) fL Neut % (Auto) (48.0-80.0) % Lymph % (Auto) (16.0-40.0) % [place] % (Auto) (0.0-15.0) % Eos % (Auto) (0.0-7.0) % Baso % (Auto) (0.0-1.5) % Neut # (1.4-5.7) K/uL Lymph # (0.6-2.4) K/uL [place] # (0.0-0.8) K/uL Eos # (0.0-0.7) K/uL Baso # (0.0-0.1) K/uL Nucleated RBC % /100WBC Nucleated RBCs # K/uL Sodium (136-146) mmol/L Potassium (3.5-5.1) mmol/L Chloride (98-110) mmol/L Carbon Dioxide (21-31) mmol/L BUN (6.0-23.0) mg/dL Creatinine (0.6-1.5) mg/dL Est Cr Clr Drug Dosing Estimated GFR (MDRD) ml/min Glucose (60-110) mg/dL POC Glucose 168 H 223 H (60-110) mg/dL Calcium (8.8-10.8) mg/dL Magnesium (1.5-2.3) mEq/L Total Bilirubin (0.1-1.5) mg/dL AST (5-40) IU/L ALT (8-54) IU/L Alkaline Phosphatase (40-150) Total Protein (6.0-8.0) g/dL Albumin (3.4-4.8) g/dL Globulin (2.0-3.5) g/dL Albumin/Globulin Ratio (1.3-2.8) Vancomycin Trough 9.5 (5-15) ug/mL Homero Results last 24 hrs: Microbiology 08/28/16 05:40 Aerobic Blood Culture - Preliminary Blood - Arm, Right NO GROWTH AFTER 1 DAY Anaerobic Blood Culture - Final 08/28/16 05:20 Aerobic Blood Culture - Preliminary Blood - Arm, Right NO GROWTH AFTER 1 DAY Anaerobic Blood Culture - Preliminary NO GROWTH AFTER 1 DAY Med Orders - Current: Current Medications Acetaminophen (Tylenol) 650 mg PO Q6H PRN PRN Reason: Pain Last Admin: 08/29/16 12:04 Dose: 650 mg Albuterol/Ipratropium (Duoneb 3.0-0.5 Mg/3 Ml) 3 ml NEB Q4HRRT PRN PRN Reason: Dyspnea Enoxaparin Sodium (Lovenox) 40 mg SUBCUT Q24H [facility] Last Admin: 08/28/16 18:36 Dose: 40 mg Piperacillin Sod/Tazobactam (Sod 3.375 gm/ Sodium Chloride) 50 mls @ 100 mls/ hr IV Q6H [facility] Last Admin: 08/29/16 10:09 Dose: 100 mls/hr Levofloxacin/Dextrose 750 mg/ (Premix) 150 mls @ 100 mls/hr IV Q24H [facility] Last Admin: 08/28/16 21:19 Dose: 100 mls/hr Vancomycin HCl 1,500 mg/ (Sodium Chloride) 500 mls @ 333.333 mls/hr IV Q8H [facility] Lactated Ringer's (Ringers, Lactated) 1,000 mls @ 100 mls/hr IV ASDIRECTED [facility] Insulin Aspart (Novolog) 0 unit SUBCUT TIDAC [facility] PRN Reason: Protocol Last Admin: 08/29/16 08:06 Dose: 2 units Insulin Glargine (Lantus Solostar) 10 units SUBCUT BEDTIME [facility] Ondansetron HCl (Zofran) 4 mg IVPUSH Q4H PRN PRN Reason: Nausea Last Admin: 08/29/16 10:09 Dose: 4 mg Sodium Chloride (Saline Flush) 10 ml FLUSH ASDIRECTED PRN PRN Reason: Keep Vein Open Last Admin: 08/27/16 14:38 Dose: 10 ml Sodium Chloride (Saline Flush) 2.5 ml FLUSH ASDIRECTED PRN PRN Reason: Keep Vein Open Last Admin: 08/27/16 14:38 Dose: 2.5 ml Vancomycin HCl (Pharmacy To Dose - Vancomycin) 1 dose .XX ASDIRECTED [facility] Discontinued Medications Acetaminophen (Tylenol Extra Strength) 1,000 mg PO ONETIME ONE Stop: 08/27/16 14:34 Last Admin: 08/27/16 14:37 Dose: 1,000 mg Enoxaparin Sodium (Lovenox) 40 mg SUBCUT DAILY [facility] Last Admin: 08/27/16 18:18 Dose: Not Given Sodium Chloride (Normal Saline) 1,000 mls @ 999 mls/hr IV .Bolus ONE Stop: 08/27/16 15:07 Last Admin: 08/27/16 14:15 Dose: 999 mls/hr Sodium Chloride (Normal Saline) 1,000 mls @ 999 mls/hr IV STAT ONE Stop: 08/27/16 15:08 Last Admin: 08/27/16 14:39 Dose: 999 mls/hr Piperacillin Sod/Tazobactam (Sod 4.5 gm/ Sodium Chloride) 100 mls @ 100 mls/hr IV ONETIME ONE Stop: 08/27/16 16:22 Last Admin: 08/27/16 16:22 Dose: 100 mls/hr Vancomycin HCl 1,000 mg/ (Dextrose/Water) 250 mls @ 167 mls/hr IV ONETIME ONE Stop: 08/27/16 16:53 Last Admin: 08/27/16 17:26 Dose: Not Given Sodium Chloride (Normal Saline) 1,000 mls @ 999 mls/hr IV STAT ONE Stop: 08/27/16 16:25 Last Admin: 08/27/16 16:23 Dose: 999 mls/hr Vancomycin HCl 1 gm/ Sodium (Chloride) 250 mls @ 167 mls/hr IV ONETIME ONE Stop: 08/27/16 17:59 Last Admin: 08/27/16 17:27 Dose: Not Given Sodium Chloride (Normal Saline) 1,000 mls @ 175 mls/hr IV ASDIRECTED [facility] Last Admin: 08/28/16 10:00 Dose: 175 mls/hr Levofloxacin/Dextrose 750 mg/ (Premix) 150 mls @ 100 mls/hr IV Q24H [facility] Last Admin: 08/27/16 18:18 Dose: Not Given Vancomycin HCl 1,500 mg/ (Sodium Chloride) 500 mls @ 333.333 mls/hr IV Q12H [facility] Last Admin: 08/29/16 05:23 Dose: 333.333 mls/hr Magnesium Sulfate 4 gm/ Premix 100 mls @ 50 mls/hr IV ONETIME ONE Stop: 08/27/16 18:54 Last Admin: 08/27/16 18:18 Dose: Not Given Magnesium Sulfate 4 gm/ Premix 100 mls @ 50 mls/hr IV ONETIME ONE Stop: 08/27/16 19:59 Last Admin: 08/27/16 18:00 Dose: 50 mls/hr Potassium Chloride/Sodium Chloride (Normal Saline With 20 Meq Kcl) 1,000 mls @ 150 mls/hr IV ASDIRECTED [facility] Last Admin: 08/29/16 08:24 Dose: 150 mls/hr Magnesium Sulfate 2 gm/ Premix 50 mls @ 50 mls/hr IV ONETIME ONE Stop: 08/28/16 11:24 Last Admin: 08/28/16 10:58 Dose: 50 mls/hr Vancomycin HCl 1,500 mg/ (Sodium Chloride) 500 mls @ 333.333 mls/hr IV Q8H [facility] Insulin Aspart (Novolog) 0 unit SUBCUT TIDAC [facility] PRN Reason: Protocol Last Admin: 08/28/16 19:54 Dose: Not Given Insulin Glargine (Lantus Solostar) 10 units SUBCUT ONETIME ONE Stop: 08/28/16 18:46 Last Admin: 08/28/16 19:25 Dose: 10 units Metformin HCl (Glucophage) 500 mg PO ONETIME ONE Stop: 08/27/16 16:10 Last Admin: 08/27/16 17:25 Dose: Not Given Potassium Chloride (Potassium Chloride) 40 meq PO ONETIME ONE Stop: 08/28/16 10:17 Last Admin: 08/28/16 10:58 Dose: 40 meq Potassium Chloride (Potassium Chloride) 40 meq PO ONETIME ONE Stop: 08/28/16 15:26 Last Admin: 08/28/16 16:08 Dose: 40 meq Sodium Chloride (Saline Flush) 2.5 ml FLUSH ASDIRECTED PRN PRN Reason: Keep Vein Open Last Admin: 08/27/16 14:39 Dose: 2.5 ml Sodium Chloride (Saline Flush) 10 ml FLUSH ASDIRECTED PRN PRN Reason: Keep Vein Open Last Admin: 08/27/16 14:39 Dose: 10 ml - Exam General: alert, oriented Lungs: Clear to auscultation, Normal respiratory effort Cardiovascular: Regular Rate, Regular Rhythm Abdomen: bowel sounds present, soft, no tenderness, no distension Extremities: no edema - Problem List Review Problem List Initiated/Reviewed/Updated: Yes - My Orders Last 24 Hours: My Active Orders 08/28/16 11:07 Chest wo Cont [CT] Routine 08/28/16 12:22 Abdomen Pelvis wo Cont [CT] Routine 08/28/16 18:02 Insulin Aspart [NovoLOG] See Protocol SUBCUT TIDAC 08/29/16 13:30 Vancomycin 1,500 mg Sodium Chloride 0.9% [Normal Saline] 500 ml IV Q8H 08/29/16 21:00 Insulin Glarg,Human.Rec.Analog [LantUS Solostar] 10 units SUBCUT BEDTIME 08/30/16 13:00 VANCOMYCIN TROUGH [CHEM] Routine - Plan Plan:: This 65 year old male admitted with sepsis and fever and suspected UTI. Sepsis with gram negative rods growing in cultures. CT scan of chest abdomen pelvis reports pathcy opacity with air bronchograms in the left lower lobe most consisten with pneumonia. Will continue Vancomycin, zosyn and levaquin. 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 Will monitor. Is on Lupron, Flomax Hyperglycemia: Will add Novolog SSI low for now, monitor BS TIDAC. VTE: Lovenox. Dispo: 2-4 days pending improvement.
[2016-08-29] MEDS: Enoxaparin 40 MG/0.4 ML Syringe SUBCUT SCH (18:32)
[2016-08-29] MEDS: Levofloxacin/Dextrose 5%-Water 750 MG in Premix Bag 1 BAG IV SCH (20:00)
[2016-08-29] MEDS ORDERED: Insulin Glargine,Human Rec. Analog 100 Units/ML 3 ML Pen SUBCUT SCH (21:00)
[2016-08-30] MEDS: Lactated Ringers 1,000 ML IV SCH ×2 (03:39→17:05)
[2016-08-30] MEDS: Piperacillin/Tazobactam 3.375 GM in Sodium Chloride 0.9% 50 ML IV SCH (03:40)
[2016-08-30 05:07] LABS: CHLORIDE,CL 115 mmol/L (98-110); SODIUM,NA 139 mmol/L (136-146)
[2016-08-30] MEDS ORDERED: Calcium Carbonate 500 MG Tab.Chew PO ONE (06:58)
--- NOTE | 2016-08-30 08:24 | PCM.PN ---
- General Info Date of Service: 08/30/16 Admission Dx/Problem (Free Text): Admission Diagnosis/Problem Admission Diagnosis/Problem Fever Subjective Update: Feeling better today. Feeling very weak. Able to eat but appetite has not returned. Having BM's. No pain. No other significant issues. Functional Status: Reports: pain controlled, incentive spirometry - Review of Systems General: Reports: Night Sweats HEENT: Denies: sinus congestion, sore throat Pulmonary: Reports: shortness of breath. Denies: pleuritic chest pain, hemoptysis, wheezing Cardiovascular: Denies: Chest Pain, Palpitations, Edema Gastrointestinal: Denies: Abdominal pain, Diarrhea, Nausea, Vomiting Genitourinary: Denies: dysuria, hematuria Musculoskeletal: Denies: neck pain, leg pain Skin: Denies: cyanosis Neurological: Denies: Confusion, Dizziness, Headache Psychiatric: Denies: confusion - Patient Data Vitals - most recent: Last Vital Signs Temp 37.2 C 08/30/16 04:00 Pulse 92 08/30/16 08:07 Resp 22 H 08/30/16 08:07 BP 125/75 08/30/16 08:07 Pulse Ox 94 L 08/30/16 08:07 Weight - most recent: 92.9 kg I&O - last 24 hours: Intake & Output 08/29/16 08/30/16 08/30/16 22:59 06:59 14:59 Intake Total 750 1296 Output Total 1350 1350 Balance -600 -54 Lab Results last 24 hrs: Laboratory Results - last 24 hr 08/29/16 08/29/16 08/30/16 Range/Units 11:52 17:22 04:40 WBC 10.27 (4.0-11.0) K/uL RBC 3.27 L (4.50-5.90) M/uL Hgb 9.2 L (13.0-17.0) g/dL Hct 28.1 L (38.0-50.0) % MCV 85.9 (80.0-98.0) fL MCH 28.1 (27.0-32.0) pg MCHC 32.7 (31.0-37.0) g/dL RDW Std Deviation 56.4 (28.0-62.0) fl RDW Coeff of Silvia 18 H (11.0-15.0) % Plt Count 179 (150-400) K/uL MPV 9.70 (7.40-12.00) fL Neut % (Auto) 83.7 H (48.0-80.0) % Lymph % (Auto) 9.2 L (16.0-40.0) % [place] % (Auto) 6.9 (0.0-15.0) % Eos % (Auto) 0.1 (0.0-7.0) % Baso % (Auto) 0.1 (0.0-1.5) % Neut # 8.6 H (1.4-5.7) K/uL Lymph # 0.9 (0.6-2.4) K/uL [place] # 0.7 (0.0-0.8) K/uL Eos # 0.0 (0.0-0.7) K/uL Baso # 0.0 (0.0-0.1) K/uL Nucleated RBC % 0.0 /100WBC Nucleated RBCs # 0 K/uL Sodium (136-146) mmol/L Potassium (3.5-5.1) mmol/L Chloride (98-110) mmol/L Carbon Dioxide (21-31) mmol/L BUN (6.0-23.0) mg/dL Creatinine (0.6-1.5) mg/dL Est Cr Clr Drug Dosing Estimated GFR (MDRD) ml/min Glucose (60-110) mg/dL POC Glucose 223 H 245 H (60-110) mg/dL Calcium (8.8-10.8) mg/dL Magnesium (1.5-2.3) mEq/L Total Bilirubin (0.1-1.5) mg/dL AST (5-40) IU/L ALT (8-54) IU/L Alkaline Phosphatase (40-150) Total Protein (6.0-8.0) g/dL Albumin (3.4-4.8) g/dL Globulin (2.0-3.5) g/dL Albumin/Globulin Ratio (1.3-2.8) 08/30/16 08/30/16 Range/Units 04:40 04:40 WBC (4.0-11.0) K/uL RBC (4.50-5.90) M/uL Hgb (13.0-17.0) g/dL Hct (38.0-50.0) % MCV (80.0-98.0) fL MCH (27.0-32.0) pg MCHC (31.0-37.0) g/dL RDW Std Deviation (28.0-62.0) fl RDW Coeff of Silvia (11.0-15.0) % Plt Count (150-400) K/uL MPV (7.40-12.00) fL Neut % (Auto) (48.0-80.0) % Lymph % (Auto) (16.0-40.0) % [place] % (Auto) (0.0-15.0) % Eos % (Auto) (0.0-7.0) % Baso % (Auto) (0.0-1.5) % Neut # (1.4-5.7) K/uL Lymph # (0.6-2.4) K/uL [place] # (0.0-0.8) K/uL Eos # (0.0-0.7) K/uL Baso # (0.0-0.1) K/uL Nucleated RBC % /100WBC Nucleated RBCs # K/uL Sodium 139 (136-146) mmol/L Potassium 3.5 (3.5-5.1) mmol/L Chloride 115 H (98-110) mmol/L Carbon Dioxide 16 L (21-31) mmol/L BUN 10 (6.0-23.0) mg/dL Creatinine 0.9 (0.6-1.5) mg/dL Est Cr Clr Drug Dosing TNP Estimated GFR (MDRD) > 60.0 ml/min Glucose 231 H (60-110) mg/dL POC Glucose (60-110) mg/dL Calcium 6.8 L (8.8-10.8) mg/dL Magnesium 2.0 (1.5-2.3) mEq/L Total Bilirubin 0.5 (0.1-1.5) mg/dL AST 33 (5-40) IU/L ALT 42 (8-54) IU/L Alkaline Phosphatase 109 (40-150) Total Protein 5.3 L (6.0-8.0) g/dL Albumin 2.7 L (3.4-4.8) g/dL Globulin 2.6 (2.0-3.5) g/dL Albumin/Globulin Ratio 1.0 L (1.3-2.8) Homero Results last 24 hrs: Microbiology 08/28/16 05:40 Aerobic Blood Culture - Preliminary Blood - Arm, Right NO GROWTH AFTER 2 DAYS Anaerobic Blood Culture - Final 08/28/16 05:20 Aerobic Blood Culture - Preliminary Blood - Arm, Right NO GROWTH AFTER 2 DAYS Anaerobic Blood Culture - Preliminary NO GROWTH AFTER 2 DAYS 08/29/16 14:00 Clostridium difficile Toxin A&B (M) - Final Stool / Feces - Stool, Liquid Negative for C.Diff Toxin/AG Med Orders - Current: Current Medications Acetaminophen (Tylenol) 650 mg PO Q6H PRN PRN Reason: Pain Last Admin: 08/29/16 20:09 Dose: 650 mg Albuterol/Ipratropium (Duoneb 3.0-0.5 Mg/3 Ml) 3 ml NEB Q4HRRT PRN PRN Reason: Dyspnea Enoxaparin Sodium (Lovenox) 40 mg SUBCUT Q24H [facility] Last Admin: 08/29/16 18:32 Dose: 40 mg Piperacillin Sod/Tazobactam (Sod 3.375 gm/ Sodium Chloride) 50 mls @ 100 mls/ hr IV Q6H [facility] Last Admin: 08/30/16 03:40 Dose: 100 mls/hr Levofloxacin/Dextrose 750 mg/ (Premix) 150 mls @ 100 mls/hr IV Q24H [facility] Last Admin: 08/29/16 20:00 Dose: 100 mls/hr Vancomycin HCl 1,500 mg/ (Sodium Chloride) 500 mls @ 333.333 mls/hr IV Q8H [facility] Last Admin: 08/30/16 05:27 Dose: 333.333 mls/hr Lactated Ringer's (Ringers, Lactated) 1,000 mls @ 100 mls/hr IV ASDIRECTED [facility] Last Admin: 08/30/16 03:39 Dose: 100 mls/hr Insulin Aspart (Novolog) 0 unit SUBCUT TIDAC [facility] PRN Reason: Protocol Last Admin: 08/29/16 17:52 Dose: 4 units Insulin Glargine (Lantus Solostar) 10 units SUBCUT BEDTIME [facility] Last Admin: 08/29/16 20:36 Dose: 10 units Ondansetron HCl (Zofran) 4 mg IVPUSH Q4H PRN PRN Reason: Nausea Last Admin: 08/29/16 10:09 Dose: 4 mg Sodium Chloride (Saline Flush) 10 ml FLUSH ASDIRECTED PRN PRN Reason: Keep Vein Open Last Admin: 08/27/16 14:38 Dose: 10 ml Sodium Chloride (Saline Flush) 2.5 ml FLUSH ASDIRECTED PRN PRN Reason: Keep Vein Open Last Admin: 08/27/16 14:38 Dose: 2.5 ml Vancomycin HCl (Pharmacy To Dose - Vancomycin) 1 dose .XX ASDIRECTED [facility] Discontinued Medications Acetaminophen (Tylenol Extra Strength) 1,000 mg PO ONETIME ONE Stop: 08/27/16 14:34 Last Admin: 08/27/16 14:37 Dose: 1,000 mg Calcium Carbonate/Glycine (Tums) 1,000 mg PO DAILY ONE Stop: 08/30/16 06:59 Last Admin: 08/30/16 07:59 Dose: 1,000 mg Enoxaparin Sodium (Lovenox) 40 mg SUBCUT DAILY [facility] Last Admin: 08/27/16 18:18 Dose: Not Given Sodium Chloride (Normal Saline) 1,000 mls @ 999 mls/hr IV .Bolus ONE Stop: 08/27/16 15:07 Last Admin: 08/27/16 14:15 Dose: 999 mls/hr Sodium Chloride (Normal Saline) 1,000 mls @ 999 mls/hr IV STAT ONE Stop: 08/27/16 15:08 Last Admin: 08/27/16 14:39 Dose: 999 mls/hr Piperacillin Sod/Tazobactam (Sod 4.5 gm/ Sodium Chloride) 100 mls @ 100 mls/hr IV ONETIME ONE Stop: 08/27/16 16:22 Last Admin: 08/27/16 16:22 Dose: 100 mls/hr Vancomycin HCl 1,000 mg/ (Dextrose/Water) 250 mls @ 167 mls/hr IV ONETIME ONE Stop: 08/27/16 16:53 Last Admin: 08/27/16 17:26 Dose: Not Given Sodium Chloride (Normal Saline) 1,000 mls @ 999 mls/hr IV STAT ONE Stop: 08/27/16 16:25 Last Admin: 08/27/16 16:23 Dose: 999 mls/hr Vancomycin HCl 1 gm/ Sodium (Chloride) 250 mls @ 167 mls/hr IV ONETIME ONE Stop: 08/27/16 17:59 Last Admin: 08/27/16 17:27 Dose: Not Given Sodium Chloride (Normal Saline) 1,000 mls @ 175 mls/hr IV ASDIRECTED [facility] Last Admin: 08/28/16 10:00 Dose: 175 mls/hr Levofloxacin/Dextrose 750 mg/ (Premix) 150 mls @ 100 mls/hr IV Q24H [facility] Last Admin: 08/27/16 18:18 Dose: Not Given Vancomycin HCl 1,500 mg/ (Sodium Chloride) 500 mls @ 333.333 mls/hr IV Q12H [facility] Last Admin: 08/29/16 05:23 Dose: 333.333 mls/hr Magnesium Sulfate 4 gm/ Premix 100 mls @ 50 mls/hr IV ONETIME ONE Stop: 08/27/16 18:54 Last Admin: 08/27/16 18:18 Dose: Not Given Magnesium Sulfate 4 gm/ Premix 100 mls @ 50 mls/hr IV ONETIME ONE Stop: 08/27/16 19:59 Last Admin: 08/27/16 18:00 Dose: 50 mls/hr Potassium Chloride/Sodium Chloride (Normal Saline With 20 Meq Kcl) 1,000 mls @ 150 mls/hr IV ASDIRECTED [facility] Last Admin: 08/29/16 08:24 Dose: 150 mls/hr Magnesium Sulfate 2 gm/ Premix 50 mls @ 50 mls/hr IV ONETIME ONE Stop: 08/28/16 11:24 Last Admin: 08/28/16 10:58 Dose: 50 mls/hr Vancomycin HCl 1,500 mg/ (Sodium Chloride) 500 mls @ 333.333 mls/hr IV Q8H [facility] Insulin Aspart (Novolog) 0 unit SUBCUT TIDAC [facility] PRN Reason: Protocol Last Admin: 08/28/16 19:54 Dose: Not Given Insulin Glargine (Lantus Solostar) 10 units SUBCUT ONETIME ONE Stop: 08/28/16 18:46 Last Admin: 08/28/16 19:25 Dose: 10 units Metformin HCl (Glucophage) 500 mg PO ONETIME ONE Stop: 08/27/16 16:10 Last Admin: 08/27/16 17:25 Dose: Not Given Potassium Chloride (Potassium Chloride) 40 meq PO ONETIME ONE Stop: 08/28/16 10:17 Last Admin: 08/28/16 10:58 Dose: 40 meq Potassium Chloride (Potassium Chloride) 40 meq PO ONETIME ONE Stop: 08/28/16 15:26 Last Admin: 08/28/16 16:08 Dose: 40 meq Sodium Chloride (Saline Flush) 2.5 ml FLUSH ASDIRECTED PRN PRN Reason: Keep Vein Open Last Admin: 08/27/16 14:39 Dose: 2.5 ml Sodium Chloride (Saline Flush) 10 ml FLUSH ASDIRECTED PRN PRN Reason: Keep Vein Open Last Admin: 08/27/16 14:39 Dose: 10 ml - Exam Quality Assessment: supplemental oxygen, DVT prophylaxis General: alert, oriented, cooperative, no acute distress HEENT: Pupils equal, Pupils reactive, EOMI, Mucous membr. moist/pink Neck: supple, trachea midline, no JVD Lungs: Normal respiratory effort, Rales (LLL) Cardiovascular: Regular Rate, Regular Rhythm Abdomen: bowel sounds present, soft, no tenderness, no distension Back Exam: normal inspection Extremities: no edema, normal pulses, no tenderness/swelling Peripheral Pulses: 2+: radial (L), radial (R), posterior tibial (L), posterior tibial (R), dorsalis pedis (L), dorsalis pedis (R) Skin: warm, dry, intact Neurological: no new focal deficit Psy/Mental Status: alert, normal affect, normal mood - Problem List & Annotations (1) Gram negative sepsis SNOMED Code(s): 876611669 Code(s): A41.50 - GRAM-NEGATIVE SEPSIS, UNSPECIFIED Status: Acute Priority: High Current Visit: Yes (2) Pneumonia SNOMED Code(s): 201890183 Code(s): J18.9 - PNEUMONIA, UNSPECIFIED ORGANISM Status: Acute Priority: High Current Visit: Yes Qualifiers: Pneumonia type: due to Klebsiella pneumoniae Laterality: left Lung location: lower lobe of lung Qualified Code(s): J15.0 - Pneumonia due to Klebsiella pneumoniae (3) Hypocalcemia SNOMED Code(s): 6866211 Code(s): E83.51 - HYPOCALCEMIA Status: Acute Priority: Medium Current Visit: Yes (4) New onset atrial flutter SNOMED Code(s): 4604355 Code(s): I48.92 - UNSPECIFIED ATRIAL FLUTTER Status: Resolved Priority: Medium Current Visit: Yes (5) New onset type 2 diabetes mellitus SNOMED Code(s): 00033501 Code(s): E11.9 - TYPE 2 DIABETES MELLITUS WITHOUT COMPLICATIONS Status: Acute Priority: Medium Current Visit: Yes - Problem List Review Problem List Initiated/Reviewed/Updated: Yes - Plan Plan:: 65 yo male admitted on 08/27/16 with Gram neg nithin sepsis, pneumonia, new-onset atrial flutter, and hyperglycemia Sepsis with gram negative sepsis/Pneumonia: CT scan showed pneumonia LLL. Blood cultures positive for Klebsiella resistant to Zosyn but sensitive to Levaquin. No leukocytosis today. A-febrile overnight las temp 08/29 38.3. Will stop Zosyn today. Continue Vanc, and Levaquin Day 4 and monitor. Will consider d/cing Vancomycin possibly tomorrow. A flutter: On admission was in atrial flutter but converted to normal sinus with IVF and abx will continue to monitor. Prostate ca: Has Mets to bones. Is on Lupron, Flomax will continue to monitory Hyperglycemia: ON Novolog SSI low for now, monitor BS TIDAC. HgbA1C 10.1 Sugars averaging in the high 200's will increase Lantus to 12 from 10 units today. Hypocalcemia: Added Tums 1000mg q day today. Will order PT/OT today secondary to weakness from current pneumonia/bacteremia and prostate cancer. VTE: Lovenox subq q day. Dispo: 2-4 days pending improvement.
[2016-08-30] MEDS: Insulin Aspart 100 Units/ML 3 ML Pen SUBCUT SCH ×3 (08:44→17:56)
[2016-08-30] MEDS ORDERED: Loperamide 2 MG Cap PO PRN (09:56)
--- NOTE | 2016-08-30 16:34 | CR ---
EXAM DATE: 08/27/16 PATIENT'S AGE: 65 Patient: RAYSA MORALES Facility: [place], [place] Site . Site : [id number] Study: XRay Chest [id number] 10:32:09 AM Ordering Physician: Betina Samuels Final Report: INDICATION: difficulty breathing/sob COMPARISON: Chest x-ray dated 27 August 2016. FINDINGS: A single portable chest x-ray shows a normal cardiac silhouette. The lungs show no focal pulmonary opacities. Sharp pleural margins. No pneumothorax. IMPRESSION: No evidence of acute pulmonary abnormalities. Dictated by Wilbert Avila MD @ 08/28/2016 10:39:35 AM Dictated by: Wilbert Avila MD @ 08/28/2016 10:39:45 (Electronic Signature) Report Signed by Proxy and Original Signed Document filed in the Medical Record. [facility]
--- NOTE | 2016-08-30 17:20 | CT ---
EXAM DATE: 08/27/16 PATIENT'S AGE: 65 Patient: RAYSA MORALES Facility: [place], [place] Site . Site : 1950 Study: CT Abdomen/Pelvis WO CONT [id number]/18/2017 2:06:53 PM Ordering Physician: Betina Samuels Final Report: INDICATION: Bacteremia. Prostate cancer. TECHNIQUE: CT chest, abdomen and pelvis acquired without intravenous contrast. COMPARISON: CT 08/23/2016. FINDINGS: Chest: Cardiovascular structures: Heart size is normal. Thoracic aorta and main pulmonary artery are normal in caliber. Mediastinum and celena: No mass or adenopathy. Lungs: Nonspecific ground-glass opacity in the right apex is new. There is minimal atelectasis in the right lower lobe. Opacity with air bronchograms in the left lower lobe is most consistent with pneumonia. Pleura and pericardium: Trace bilateral pleural effusions. No pericardial effusion. Chest wall and axilla: No mass or adenopathy. Abdomen and Pelvis: Liver: Hepatic parenchyma is diffusely low in attenuation. Spleen: Mildly enlarged. No focal lesion. Pancreas: Unremarkable. Gallbladder and bile ducts: Tiny gallstone noted. Kidneys: There are bilateral renal cysts. No hydronephrosis in either kidney. No urinary tract calculus. Nonspecific bilateral perinephric stranding is increased. Adrenal glands: Unremarkable. GI tract: There is colonic diverticulosis without evidence of diverticulitis. No acute bowel abnormality. Vascular structures: No abdominal aortic aneurysm. Lymph nodes: Unremarkable. Miscellaneous: No ascites. No free air. Tiny fat containing umbilical hernia. Pelvic Organs: Gas within the urinary bladder is likely secondary to Wen catheter placement which decompresses the bladder. Bones: 1.9 cm sclerotic lesion in the right aspect of the T11 vertebral body is stable. 1 cm sclerotic lesion in the sternum is noted. Sclerotic lesions identified in L4 and L5 as well as the sacrum and right femoral neck. IMPRESSION: 1. Patchy opacity with air bronchograms in the left lower lobe is most consistent with pneumonia. Small area of ground-glass opacity in the right apex is nonspecific. 2. The bladder is decompressed with a Wen catheter. Gas within the urinary bladder is likely secondary to catheter placement. Increased bilateral perinephric stranding. This finding is nonspecific. An infectious process could have this appearance. 3. Sclerotic bone lesions suspicious for metastatic disease. 4. Cholelithiasis. 5. Colonic diverticulosis. Dictated by Miko Harrell MD @ Aug 28 2016 6:30PM (Electronic Signature) Report Signed by Proxy and Original Signed Document filed in the Medical Record. MTDD
--- NOTE | 2016-08-30 17:21 | CT ---
EXAM DATE: 08/27/16 PATIENT'S AGE: 65 Patient: RAYSA MORALES Facility: [place], [place] Site . Site : 1950 Study: CT Chest WO CONT [id number]/18/2017 2:12:24 PM Ordering Physician: Betina Samuels Final Report: INDICATION: Bacteremia. Prostate cancer. TECHNIQUE: CT chest, abdomen and pelvis acquired without intravenous contrast. COMPARISON: CT 08/23/2016. FINDINGS: Chest: Cardiovascular structures: Heart size is normal. Thoracic aorta and main pulmonary artery are normal in caliber. Mediastinum and celena: No mass or adenopathy. Lungs: Nonspecific ground-glass opacity in the right apex is new. There is minimal atelectasis in the right lower lobe. Opacity with air bronchograms in the left lower lobe is most consistent with pneumonia. Pleura and pericardium: Trace bilateral pleural effusions. No pericardial effusion. Chest wall and axilla: No mass or adenopathy. Abdomen and Pelvis: Liver: Hepatic parenchyma is diffusely low in attenuation. Spleen: Mildly enlarged. No focal lesion. Pancreas: Unremarkable. Gallbladder and bile ducts: Tiny gallstone noted. Kidneys: There are bilateral renal cysts. No hydronephrosis in either kidney. No urinary tract calculus. Nonspecific bilateral perinephric stranding is increased. Adrenal glands: Unremarkable. GI tract: There is colonic diverticulosis without evidence of diverticulitis. No acute bowel abnormality. Vascular structures: No abdominal aortic aneurysm. Lymph nodes: Unremarkable. Miscellaneous: No ascites. No free air. Tiny fat containing umbilical hernia. Pelvic Organs: Gas within the urinary bladder is likely secondary to Wen catheter placement which decompresses the bladder. Bones: 1.9 cm sclerotic lesion in the right aspect of the T11 vertebral body is stable. 1 cm sclerotic lesion in the sternum is noted. Sclerotic lesions identified in L4 and L5 as well as the sacrum and right femoral neck. IMPRESSION: 1. Patchy opacity with air bronchograms in the left lower lobe is most consistent with pneumonia. Small area of ground-glass opacity in the right apex is nonspecific. 2. The bladder is decompressed with a Wen catheter. Gas within the urinary bladder is likely secondary to catheter placement. Increased bilateral perinephric stranding. This finding is nonspecific. An infectious process could have this appearance. 3. Sclerotic bone lesions suspicious for metastatic disease. 4. Cholelithiasis. 5. Colonic diverticulosis. Dictated by Miko Harrell MD @ 08/28/2016 6:29:16 PM Dictated by: Miko Harrell MD @ 08/28/2016 18:29:22 (Electronic Signature) Report Signed by Proxy and Original Signed Document filed in the Medical Record. MTDD
[2016-08-30] MEDS: Enoxaparin 40 MG/0.4 ML Syringe SUBCUT SCH (18:35)
[2016-08-30] MEDS: Insulin Glargine,Human Rec. Analog 100 Units/ML 3 ML Pen SUBCUT SCH (20:55)
[2016-08-30] MEDS: Levofloxacin/Dextrose 5%-Water 750 MG in Premix Bag 1 BAG IV SCH (20:56)
[2016-08-31 05:35] LABS: CHLORIDE,CL 113 mmol/L (98-110); SODIUM,NA 139 mmol/L (136-146)
[2016-08-31] MEDS ORDERED: Potassium Chloride 20 MEQ Tab.ER PO ONE (07:05)
[2016-08-31] MEDS: Insulin Aspart 100 Units/ML 3 ML Pen SUBCUT SCH ×3 (07:51→16:52)
--- NOTE | 2016-08-31 08:20 | PCM.PN ---
- General Info Date of Service: 08/31/16 Admission Dx/Problem (Free Text): Admission Diagnosis/Problem Admission Diagnosis/Problem Fever Subjective Update: Feeling stronger today but still having problems getting up to use the bathroom on his own. States pt/ot did work with him yesterday. Appetite still bad but eating. BM last evening. No pain. Breathing improved and no longer requiring supplemental oxygen. Functional Status: Reports: pain controlled, tolerating diet, incentive spirometry - Review of Systems General: Reports: Weakness, Fatigue. Denies: Fever, Chills, Night Sweats HEENT: Denies: dysphasia, sinus congestion Pulmonary: Denies: shortness of breath, pleuritic chest pain, cough, wheezing Cardiovascular: Denies: Chest Pain, Palpitations, Edema Gastrointestinal: Reports: Diarrhea. Denies: Abdominal pain, Hematochezia, Melena, Vomiting Genitourinary: Denies: dysuria, hematuria Musculoskeletal: Denies: leg pain Skin: Denies: cyanosis Neurological: Denies: Confusion, Dizziness, Headache Psychiatric: Denies: confusion - Patient Data Vitals - most recent: Last Vital Signs Temp 36.7 C 08/31/16 04:00 Pulse 90 08/31/16 06:54 Resp 23 H 08/31/16 06:54 BP 145/75 H 08/31/16 06:54 Pulse Ox 93 L 08/31/16 06:54 Weight - most recent: 93.4 kg I&O - last 24 hours: Intake & Output 08/30/16 08/31/16 08/31/16 22:59 06:59 14:59 Intake Total 2508 1000 Output Total 1350 1500 Balance 1158 -500 Lab Results last 24 hrs: Laboratory Results - last 24 hr 08/30/16 08/30/16 08/30/16 Range/Units 11:23 13:02 17:04 WBC (4.0-11.0) K/uL RBC (4.50-5.90) M/uL Hgb (13.0-17.0) g/dL Hct (38.0-50.0) % MCV (80.0-98.0) fL MCH (27.0-32.0) pg MCHC (31.0-37.0) g/dL RDW Std Deviation (28.0-62.0) fl RDW Coeff of Silvia (11.0-15.0) % Plt Count (150-400) K/uL MPV (7.40-12.00) fL Neut % (Auto) (48.0-80.0) % Lymph % (Auto) (16.0-40.0) % [place] % (Auto) (0.0-15.0) % Eos % (Auto) (0.0-7.0) % Baso % (Auto) (0.0-1.5) % Neut # (1.4-5.7) K/uL Lymph # (0.6-2.4) K/uL [place] # (0.0-0.8) K/uL Eos # (0.0-0.7) K/uL Baso # (0.0-0.1) K/uL Nucleated RBC % /100WBC Nucleated RBCs # K/uL Sodium (136-146) mmol/L Potassium (3.5-5.1) mmol/L Chloride (98-110) mmol/L Carbon Dioxide (21-31) mmol/L BUN (6.0-23.0) mg/dL Creatinine (0.6-1.5) mg/dL Est Cr Clr Drug Dosing mL/min Estimated GFR (MDRD) ml/min Glucose (60-110) mg/dL POC Glucose 270 H 199 H (60-110) mg/dL Calcium (8.8-10.8) mg/dL Total Bilirubin (0.1-1.5) mg/dL AST (5-40) IU/L ALT (8-54) IU/L Alkaline Phosphatase (40-150) Total Protein (6.0-8.0) g/dL Albumin (3.4-4.8) g/dL Globulin (2.0-3.5) g/dL Albumin/Globulin Ratio (1.3-2.8) Vancomycin Trough 18.9 H (5-15) ug/mL 08/31/16 08/31/16 08/31/16 Range/Units 05:04 05:04 07:48 WBC 8.48 (4.0-11.0) K/uL RBC 3.60 L (4.50-5.90) M/uL Hgb 10.0 L (13.0-17.0) g/dL Hct 30.9 L (38.0-50.0) % MCV 85.8 (80.0-98.0) fL MCH 27.8 (27.0-32.0) pg MCHC 32.4 (31.0-37.0) g/dL RDW Std Deviation 56.4 (28.0-62.0) fl RDW Coeff of Silvia 18 H (11.0-15.0) % Plt Count 225 (150-400) K/uL MPV 9.40 (7.40-12.00) fL Neut % (Auto) 73.9 (48.0-80.0) % Lymph % (Auto) 14.9 L (16.0-40.0) % [place] % (Auto) 10.4 (0.0-15.0) % Eos % (Auto) 0.4 (0.0-7.0) % Baso % (Auto) 0.4 (0.0-1.5) % Neut # 6.3 H (1.4-5.7) K/uL Lymph # 1.3 (0.6-2.4) K/uL [place] # 0.9 H (0.0-0.8) K/uL Eos # 0.0 (0.0-0.7) K/uL Baso # 0.0 (0.0-0.1) K/uL Nucleated RBC % 0.0 /100WBC Nucleated RBCs # 0 K/uL Sodium 139 (136-146) mmol/L Potassium 3.3 L (3.5-5.1) mmol/L Chloride 113 H (98-110) mmol/L Carbon Dioxide 18 L (21-31) mmol/L BUN 10 (6.0-23.0) mg/dL Creatinine 0.8 (0.6-1.5) mg/dL Est Cr Clr Drug Dosing 91.78 mL/min Estimated GFR (MDRD) > 60.0 ml/min Glucose 158 H (60-110) mg/dL POC Glucose 140 H (60-110) mg/dL Calcium 7.2 L (8.8-10.8) mg/dL Total Bilirubin 0.4 (0.1-1.5) mg/dL AST 30 (5-40) IU/L ALT 38 (8-54) IU/L Alkaline Phosphatase 157 H (40-150) Total Protein 5.5 L (6.0-8.0) g/dL Albumin 2.8 L (3.4-4.8) g/dL Globulin 2.7 (2.0-3.5) g/dL Albumin/Globulin Ratio 1.0 L (1.3-2.8) Vancomycin Trough (5-15) ug/mL Homero Results last 24 hrs: Microbiology 08/28/16 05:40 Aerobic Blood Culture - Preliminary Blood - Arm, Right NO GROWTH AFTER 3 DAYS Anaerobic Blood Culture - Final 08/28/16 05:20 Aerobic Blood Culture - Preliminary Blood - Arm, Right NO GROWTH AFTER 3 DAYS Anaerobic Blood Culture - Preliminary NO GROWTH AFTER 3 DAYS Med Orders - Current: Current Medications Acetaminophen (Tylenol) 650 mg PO Q6H PRN PRN Reason: Pain Last Admin: 08/29/16 20:09 Dose: 650 mg Albuterol/Ipratropium (Duoneb 3.0-0.5 Mg/3 Ml) 3 ml NEB Q4HRRT PRN PRN Reason: Dyspnea Enoxaparin Sodium (Lovenox) 40 mg SUBCUT Q24H [facility] Last Admin: 08/30/16 18:35 Dose: 40 mg Levofloxacin/Dextrose 750 mg/ (Premix) 150 mls @ 100 mls/hr IV Q24H [facility] Last Admin: 08/30/16 20:56 Dose: 100 mls/hr Vancomycin HCl 1,500 mg/ (Sodium Chloride) 500 mls @ 333.333 mls/hr IV Q8H [facility] Last Admin: 08/31/16 05:10 Dose: 333.333 mls/hr Lactated Ringer's (Ringers, Lactated) 1,000 mls @ 50 mls/hr IV ASDIRECTED [facility] Last Admin: 08/30/16 17:05 Dose: 50 mls/hr Insulin Aspart (Novolog) 0 unit SUBCUT TIDAC [facility] PRN Reason: Protocol Last Admin: 08/31/16 07:51 Dose: Not Given Insulin Glargine (Lantus Solostar) 12 units SUBCUT BEDTIME [facility] Last Admin: 08/30/16 20:55 Dose: 12 units Loperamide HCl (Imodium) 2 mg PO ASDIRECTED PRN PRN Reason: Diarrhea Ondansetron HCl (Zofran) 4 mg IVPUSH Q4H PRN PRN Reason: Nausea Last Admin: 08/29/16 10:09 Dose: 4 mg Sodium Chloride (Saline Flush) 10 ml FLUSH ASDIRECTED PRN PRN Reason: Keep Vein Open Last Admin: 08/27/16 14:38 Dose: 10 ml Sodium Chloride (Saline Flush) 2.5 ml FLUSH ASDIRECTED PRN PRN Reason: Keep Vein Open Last Admin: 08/27/16 14:38 Dose: 2.5 ml Vancomycin HCl (Pharmacy To Dose - Vancomycin) 1 dose .XX ASDIRECTED [facility] Discontinued Medications Acetaminophen (Tylenol Extra Strength) 1,000 mg PO ONETIME ONE Stop: 08/27/16 14:34 Last Admin: 08/27/16 14:37 Dose: 1,000 mg Calcium Carbonate/Glycine (Tums) 1,000 mg PO DAILY ONE Stop: 08/30/16 06:59 Last Admin: 08/30/16 07:59 Dose: 1,000 mg Enoxaparin Sodium (Lovenox) 40 mg SUBCUT DAILY [facility] Last Admin: 08/27/16 18:18 Dose: Not Given Sodium Chloride (Normal Saline) 1,000 mls @ 999 mls/hr IV .Bolus ONE Stop: 08/27/16 15:07 Last Admin: 08/27/16 14:15 Dose: 999 mls/hr Sodium Chloride (Normal Saline) 1,000 mls @ 999 mls/hr IV STAT ONE Stop: 08/27/16 15:08 Last Admin: 08/27/16 14:39 Dose: 999 mls/hr Piperacillin Sod/Tazobactam (Sod 4.5 gm/ Sodium Chloride) 100 mls @ 100 mls/hr IV ONETIME ONE Stop: 08/27/16 16:22 Last Admin: 08/27/16 16:22 Dose: 100 mls/hr Vancomycin HCl 1,000 mg/ (Dextrose/Water) 250 mls @ 167 mls/hr IV ONETIME ONE Stop: 08/27/16 16:53 Last Admin: 08/27/16 17:26 Dose: Not Given Sodium Chloride (Normal Saline) 1,000 mls @ 999 mls/hr IV STAT ONE Stop: 08/27/16 16:25 Last Admin: 08/27/16 16:23 Dose: 999 mls/hr Vancomycin HCl 1 gm/ Sodium (Chloride) 250 mls @ 167 mls/hr IV ONETIME ONE Stop: 08/27/16 17:59 Last Admin: 08/27/16 17:27 Dose: Not Given Sodium Chloride (Normal Saline) 1,000 mls @ 175 mls/hr IV ASDIRECTED [facility] Last Admin: 08/28/16 10:00 Dose: 175 mls/hr Levofloxacin/Dextrose 750 mg/ (Premix) 150 mls @ 100 mls/hr IV Q24H [facility] Last Admin: 08/27/16 18:18 Dose: Not Given Piperacillin Sod/Tazobactam (Sod 3.375 gm/ Sodium Chloride) 50 mls @ 100 mls/ hr IV Q6H [facility] Last Admin: 08/30/16 03:40 Dose: 100 mls/hr Vancomycin HCl 1,500 mg/ (Sodium Chloride) 500 mls @ 333.333 mls/hr IV Q12H [facility] Last Admin: 08/29/16 05:23 Dose: 333.333 mls/hr Magnesium Sulfate 4 gm/ Premix 100 mls @ 50 mls/hr IV ONETIME ONE Stop: 08/27/16 18:54 Last Admin: 08/27/16 18:18 Dose: Not Given Magnesium Sulfate 4 gm/ Premix 100 mls @ 50 mls/hr IV ONETIME ONE Stop: 08/27/16 19:59 Last Admin: 08/27/16 18:00 Dose: 50 mls/hr Potassium Chloride/Sodium Chloride (Normal Saline With 20 Meq Kcl) 1,000 mls @ 150 mls/hr IV ASDIRECTED [facility] Last Admin: 08/29/16 08:24 Dose: 150 mls/hr Magnesium Sulfate 2 gm/ Premix 50 mls @ 50 mls/hr IV ONETIME ONE Stop: 08/28/16 11:24 Last Admin: 08/28/16 10:58 Dose: 50 mls/hr Vancomycin HCl 1,500 mg/ (Sodium Chloride) 500 mls @ 333.333 mls/hr IV Q8H [facility] Lactated Ringer's (Ringers, Lactated) 1,000 mls @ 100 mls/hr IV ASDIRECTED [facility] Last Admin: 08/30/16 03:39 Dose: 100 mls/hr Insulin Aspart (Novolog) 0 unit SUBCUT TIDAC [facility] PRN Reason: Protocol Last Admin: 08/28/16 19:54 Dose: Not Given Insulin Glargine (Lantus Solostar) 10 units SUBCUT BEDTIME [facility] Last Admin: 08/29/16 20:36 Dose: 10 units Insulin Glargine (Lantus Solostar) 10 units SUBCUT ONETIME ONE Stop: 08/28/16 18:46 Last Admin: 08/28/16 19:25 Dose: 10 units Metformin HCl (Glucophage) 500 mg PO ONETIME ONE Stop: 08/27/16 16:10 Last Admin: 08/27/16 17:25 Dose: Not Given Potassium Chloride (Potassium Chloride) 40 meq PO ONETIME ONE Stop: 08/28/16 10:17 Last Admin: 08/28/16 10:58 Dose: 40 meq Potassium Chloride (Potassium Chloride) 40 meq PO ONETIME ONE Stop: 08/28/16 15:26 Last Admin: 08/28/16 16:08 Dose: 40 meq Potassium Chloride (Klor-Con M20) 40 meq PO ONETIME ONE Stop: 08/31/16 07:06 Last Admin: 08/31/16 07:44 Dose: 40 meq Sodium Chloride (Saline Flush) 2.5 ml FLUSH ASDIRECTED PRN PRN Reason: Keep Vein Open Last Admin: 08/27/16 14:39 Dose: 2.5 ml Sodium Chloride (Saline Flush) 10 ml FLUSH ASDIRECTED PRN PRN Reason: Keep Vein Open Last Admin: 08/27/16 14:39 Dose: 10 ml - Exam Quality Assessment: DVT prophylaxis General: alert, oriented, cooperative, no acute distress HEENT: Pupils equal, Pupils reactive, EOMI, Mucous membr. moist/pink Neck: supple, trachea midline Lungs: Clear to auscultation, Normal respiratory effort Cardiovascular: Regular Rate, Regular Rhythm, No Murmurs Abdomen: bowel sounds present, soft, no tenderness, no distension Extremities: no edema, normal pulses, no tenderness/swelling Peripheral Pulses: 2+: radial (L), radial (R), posterior tibial (L), posterior tibial (R), dorsalis pedis (L), dorsalis pedis (R) Skin: warm, dry, intact Neurological: no new focal deficit Psy/Mental Status: alert, normal affect, normal mood - Problem List & Annotations (1) Gram negative sepsis SNOMED Code(s): 069345701 Code(s): A41.50 - GRAM-NEGATIVE SEPSIS, UNSPECIFIED Status: Acute Priority: High Current Visit: Yes (2) Pneumonia SNOMED Code(s): 447543223 Code(s): J18.9 - PNEUMONIA, UNSPECIFIED ORGANISM Status: Acute Priority: High Current Visit: Yes Qualifiers: Pneumonia type: due to Klebsiella pneumoniae Laterality: left Lung location: lower lobe of lung Qualified Code(s): J15.0 - Pneumonia due to Klebsiella pneumoniae (3) Hypocalcemia SNOMED Code(s): 1446720 Code(s): E83.51 - HYPOCALCEMIA Status: Resolved Priority: Medium Current Visit: Yes (4) New onset atrial flutter SNOMED Code(s): 9039254 Code(s): I48.92 - UNSPECIFIED ATRIAL FLUTTER Status: Resolved Priority: Medium Current Visit: Yes (5) New onset type 2 diabetes mellitus SNOMED Code(s): 24588049 Code(s): E11.9 - TYPE 2 DIABETES MELLITUS WITHOUT COMPLICATIONS Status: Acute Priority: Medium Current Visit: Yes - Problem List Review Problem List Initiated/Reviewed/Updated: Yes - My Orders Last 24 Hours: My Active Orders 08/30/16 08:20 Incentive Spirometry [RT Incentive Spirometry] [RC] ASDIRECTED - Plan Plan:: 65 yo male admitted on 08/27/16 with Klebsiella pneumonia sepsis, new-onset atrial flutter, hyperglycemia, and prostate cancer on Lupron and Flomax Klebsiella/Pneumonia sepsis: No leukocytosis again today. A-febrile overnight again last temp 08/29 38.3. Will stop Vancomycin today and switch to oral Levafloxacin. Patient has received 4 days of Levaquin already will need 6 days of oral Levaquin. Day 5 today. 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 Is on Lupron, Flomax will continue to monitory Hyperglycemia: ON Novolog SSI low for now, monitor BS TIDAC. HgbA1C 10.1 Will monitor sugar today, increased Lantus from 10 to 12 yesterday. Hypocalcemia: Tums 1000mg q day again today. PT/OT seeing patient again today for weakness. Will step-down to floor today. VTE: Lovenox subq q day. Dispo: Tomorrow pending may need home health
[2016-08-31] MEDS: Levofloxacin 500 MG Tab PO SCH (11:28)
[2016-08-31] MEDS: Lactated Ringers 1,000 ML IV SCH (16:54)
[2016-08-31] MEDS: Enoxaparin 40 MG/0.4 ML Syringe SUBCUT SCH (17:18)
[2016-08-31] MEDS: Insulin Glargine,Human Rec. Analog 100 Units/ML 3 ML Pen SUBCUT SCH (21:54)
[2016-09-01] MEDS: Insulin Aspart 100 Units/ML 3 ML Pen SUBCUT SCH ×2 (07:58→11:42)
[2016-09-01 08:35] LABS: CHLORIDE,CL 113 mmol/L (98-110); SODIUM,NA 139 mmol/L (136-146)
[2016-09-01] MEDS ORDERED: Potassium Chloride 20 MEQ Tab.ER PO ONE (10:04)
[2016-09-01] MEDS: Levofloxacin 500 MG Tab PO SCH (10:38)
[2016-09-01 11:34] VITALS: BP 132/70
--- NOTE | 2016-09-02 12:00 | PCM.DCSUM1 ---
[id number] Initial Comments: 65 yo male admitted 08/27/16 admitted for sepsis, atril flutter, found to have positive Kleisella pneumonia and new onset type II diabetes with pmh of Prostate Cancer on Lupron and Flomax. Brief History: This 65 year old male with pmh of metastatic prostate ca presented to the ED with fever and chills. He reported he was feeling well until approximately noon when he started having uncontrollable chills at work. He was recently seen by his Urologist, Dr Lion who obtained a UA and called him yesterday stating something grew on his urine culture. He was started on Bactrim, he had taken 3 doses of this prior to today. He denies any chest pain, palpitations, abdominal pain or urinary symptoms. He does self-catheterize multiple times daily, if he urinates on his own he only gets approximately 50 - 100 mls. He denied any recent URI or fever prior to admission. No sore throat of sinus congestion. He felt his mouth was very dry. He did have some SOB when he was having chills. He denied any skin rashes or red warm or open areas to his skin. On August 04 he had his last chemotherapy. He does not have any port or PICC line in place. In the ED, leukocytosis was noted, 19,380, hgb 12.6 , lactate 3.3, Na 137, K+ 4.2, glucose 296. Ua trace blood, negative nitrite, and negative leukocyte esterase, few bacteria. CXR revealed possible trace left basilar atelectasis and/or infiltrate. Did have chest, abd/pelvis CT 2016, chest revealed minimal dependent atelectasis in posterior lung bases, no infiltrates, nodules or masses. Abd/pelvis noted multiple sclerotic foci in pelvis suspicious for metastatic disease to bone. - Discharge Data Discharge Date: 09/01/16 Discharge Disposition: Home, Self-Care 01 Condition: Good - Discharge Diagnosis/Problem(s) (1) Gram negative sepsis SNOMED Code(s): 442640198 ICD Code: A41.50 - GRAM-NEGATIVE SEPSIS, UNSPECIFIED Status: Resolved Priority: High (2) Pneumonia SNOMED Code(s): 037914730 ICD Code: J18.9 - PNEUMONIA, UNSPECIFIED ORGANISM Status: Acute Priority : High Qualifiers: Pneumonia type: due to Klebsiella pneumoniae Laterality: left Lung location: lower lobe of lung Qualified Code(s): J15.0 - Pneumonia due to Klebsiella pneumoniae (3) Hypocalcemia SNOMED Code(s): 1862185 ICD Code: E83.51 - HYPOCALCEMIA Status: Resolved Priority: Medium (4) New onset atrial flutter SNOMED Code(s): 8665397 ICD Code: I48.92 - UNSPECIFIED ATRIAL FLUTTER Status: Resolved Priority: Medium (5) New onset type 2 diabetes mellitus SNOMED Code(s): 78123567 ICD Code: E11.9 - TYPE 2 DIABETES MELLITUS WITHOUT COMPLICATIONS Status: Acute Priority: Medium - Patient Summary/Data Consults: Consultations 08/30/16 09:46 Consult to Diabetic Nurse Specialist [CONS] Routine OT Evaluation and Treatment [CONS] Routine PT Evaluation and Treatment [CONS] Routine Hospital Course: He was initally admitted to ICU for sepsis, a-flutter, fever and suspected UTI\ Pneumonia. Patient was treated with IV Zosyn, Levaquin, and Vancomycin. He was aggressively IVF resuscitated and his atril flutter resolved. His blood culture was positive for Klebsiella pneumonia reistant to Zosyn. Leukocytosis resolved and Vancomycin as well as Zosyn were discontinued and patient was transitioned to oral Levaquin. Patients HgbA1C was elevated to 10.1 and the patient was started on Lantus with Insulin sliding scale. special education paraeducator consulted patient and instructed him on proper administration. He was discharge on Lantus 12 units at bedtime with medium dose insulin sliding scale. - Patient Instructions Diet: Diabetic Diet Activity: No Strenuous Activities, Rest and Relax Today Driving: Do Not Drive Showering/Bathing: May Shower Notify Provider of: Fever, Increased Pain, Nausea and/or Vomiting - Discharge Plan Prescriptions/Med Rec: Insulin Aspart [NovoLOG] See Protocol SUBCUT TIDAC #2 pen Insulin Glarg,Human.Rec.Analog [LantUS Solostar] 12 units SUBCUT BEDTIME #2 pen Levofloxacin [Levaquin] 500 mg PO Q24H #8 tablet Home Medications: Home Meds Calcium Carb & Citrate/Vit D3 [Calcium + D3 ER Tablet] 1 tab PO DAILY 08/28/16 [ History] Mirabegron [Myrbetriq] 50 mg PO DAILY 08/28/16 [History] Multivitamins [Tab-A-Annia] 1 tab PO DAILY 08/28/16 [History] Ondansetron HCl [Ondansetron] 8 mg PO Q8H PRN 08/28/16 [History] Sulfamethoxazole/Trimethoprim [Sulfamethoxazole-Tmp Ds Tablet] 1 tab PO BID [History] Tamsulosin HCl [Flomax] 0.4 mg PO DAILY 08/28/16 [History] Zolpidem [Ambien] 5 mg PO BEDTIME PRN 08/28/16 [History] Oxybutynin Chloride [Oxybutynin Chloride ER] 08/30/16 [History] Insulin Aspart [NovoLOG] See Protocol SUBCUT TIDAC #2 pen 09/01/16 [Rx] Insulin Glarg,Human.Rec.Analog [LantUS Solostar] 12 units SUBCUT BEDTIME #2 pen 09/01/16 [Rx] Levofloxacin [Levaquin] 500 mg PO Q24H #8 tablet 09/01/16 [Rx] Patient Handouts: Insulin Aspart injection, Sepsis, Adult, Levofloxacin tablets , Insulin Glargine injection, Type 2 Diabetes Mellitus, Adult, [id number] Referrals: [facility] [Outside] Sal Reis MD [Primary Care Provider] - 09/08/16 10:45 am - Discharge Summary/Plan Comment DC Time >30 min.: Yes Discharge Summary/Plan Comment: 65 yo male admitted 08/27/16 admitted for sepsis, atril flutter, found to have positive Kleisella pneumonia and new onset type II diabetes with pmh of Prostate Cancer on Lupron and Flomax. This 65 year old male with pmh of metastatic prostate ca presented to the ED with fever and chills. He reported he was feeling well until approximately noon when he started having uncontrollable chills at work. He was recently seen by his Urologist, Dr Lion who obtained a UA and called him yesterday stating something grew on his urine culture. He was started on Bactrim, he had taken 3 doses of this prior to today. He denies any chest pain, palpitations, abdominal pain or urinary symptoms. He does self-catheterize multiple times daily, if he urinates on his own he only gets approximately 50 -100 mls. He denied any recent URI or fever prior to admission. No sore throat of sinus congestion. He felt his mouth was very dry. He did have some SOB when he was having chills. He denied any skin rashes or red warm or open areas to his skin. On August 04 he had his last chemotherapy. He does not have any port or PICC line in place. In the ED, leukocytosis was noted, 19,380, hgb 12.6, lactate 3.3, Na 137, K+ 4.2 , glucose 296. Ua trace blood, negative nitrite, and negative leukocyte esterase , few bacteria. CXR revealed possible trace left basilar atelectasis and/or infiltrate. Did have chest, abd/pelvis CT 08/23/2016, chest revealed minimal dependent atelectasis in posterior lung bases, no infiltrates, nodules or masses. Abd/ pelvis noted multiple sclerotic foci in pelvis suspicious for metastatic disease to bone. He was initally admitted to ICU for sepsis, a-flutter, fever and suspected UTI\ Pneumonia. Patient was treated with IV Zosyn, Levaquin, and Vancomycin. He was aggressively IVF resuscitated and his atril flutter resolved. His blood culture was positive for Klebsiella pneumonia reistant to Zosyn. Leukocytosis resolved and Vancomycin as well as Zosyn were discontinued and patient was transitioned to oral Levaquin. Patients HgbA1C was elevated to 10.1 and the patient was started on Lantus with Insulin sliding scale. special education paraeducator consulted patient and instructed him on proper administration. He was discharge on Lantus 12 units at bedtime with medium dose insulin sliding scale. On day of discharge, Dr. Helms, oncologist, was able to see the patient in his room. Patient had been scheduled for an outpatient appointment for . He was discharged in good condition with a prescription for 8 days of Levaquin for 14 day total treatment, Lantus 12 units nightly, and Novolg for medium dose sliding scale. He was scheduled for follow-up appointment with his primary care provider Dr. Ness and told to return to the ED if he had any return or worsen symptoms. - General Info Date of Service: 09/02/16 Functional Status: Reports: pain controlled, tolerating diet, ambulating - Review of Systems General: Denies: Fever, Weakness, Fatigue HEENT: Denies: dysphasia, headaches Pulmonary: Reports: cough. Denies: shortness of breath, pleuritic chest pain, sputum, hemoptysis Cardiovascular: Denies: Chest Pain, Palpitations Gastrointestinal: Denies: Abdominal pain, Diarrhea, Nausea, Vomiting Genitourinary: Denies: dysuria, hematuria Musculoskeletal: Denies: neck pain, leg pain Skin: Denies: cyanosis Neurological: Denies: Confusion, Dizziness, Headache Psychiatric: Denies: confusion - Patient Data Vitals - Most Recent: Last Vital Signs Temp 36.2 C 09/01/16 11:32 Pulse 89 09/01/16 11:32 Resp 20 09/01/16 11:32 BP 132/70 09/01/16 11:32 Pulse Ox 98 09/01/16 12:00 Weight - Most Recent: 93.4 kg ANDREI Results - Last 24 hrs: Microbiology 08/28/16 05:40 Aerobic Blood Culture - Final Blood - Arm, Right NO GROWTH AFTER 5 DAYS Anaerobic Blood Culture - Final 08/28/16 05:20 Aerobic Blood Culture - Final Blood - Arm, Right NO GROWTH AFTER 5 DAYS Anaerobic Blood Culture - Final NO GROWTH AFTER 5 DAYS Med Orders - Current: Current Medications Discontinued Medications Acetaminophen (Tylenol Extra Strength) 1,000 mg PO ONETIME ONE Stop: 08/27/16 14:34 Last Admin: 08/27/16 14:37 Dose: 1,000 mg Acetaminophen (Tylenol) 650 mg PO Q6H PRN PRN Reason: Pain Last Admin: 08/29/16 20:09 Dose: 650 mg Albuterol/Ipratropium (Duoneb 3.0-0.5 Mg/3 Ml) 3 ml NEB Q4HRRT PRN PRN Reason: Dyspnea Calcium Carbonate/Glycine (Tums) 1,000 mg PO DAILY ONE Stop: 08/30/16 06:59 Last Admin: 08/30/16 07:59 Dose: 1,000 mg Enoxaparin Sodium (Lovenox) 40 mg SUBCUT DAILY [facility] Last Admin: 08/27/16 18:18 Dose: Not Given Enoxaparin Sodium (Lovenox) 40 mg SUBCUT Q24H [facility] Last Admin: 08/31/16 17:18 Dose: 40 mg Sodium Chloride (Normal Saline) 1,000 mls @ 999 mls/hr IV .Bolus ONE Stop: 08/27/16 15:07 Last Admin: 08/27/16 14:15 Dose: 999 mls/hr Sodium Chloride (Normal Saline) 1,000 mls @ 999 mls/hr IV STAT ONE Stop: 08/27/16 15:08 Last Admin: 08/27/16 14:39 Dose: 999 mls/hr Piperacillin Sod/Tazobactam (Sod 4.5 gm/ Sodium Chloride) 100 mls @ 100 mls/hr IV ONETIME ONE Stop: 08/27/16 16:22 Last Admin: 08/27/16 16:22 Dose: 100 mls/hr Vancomycin HCl 1,000 mg/ (Dextrose/Water) 250 mls @ 167 mls/hr IV ONETIME ONE Stop: 08/27/16 16:53 Last Admin: 08/27/16 17:26 Dose: Not Given Sodium Chloride (Normal Saline) 1,000 mls @ 999 mls/hr IV STAT ONE Stop: 08/27/16 16:25 Last Admin: 08/27/16 16:23 Dose: 999 mls/hr Vancomycin HCl 1 gm/ Sodium (Chloride) 250 mls @ 167 mls/hr IV ONETIME ONE Stop: 08/27/16 17:59 Last Admin: 08/27/16 17:27 Dose: Not Given Sodium Chloride (Normal Saline) 1,000 mls @ 175 mls/hr IV ASDIRECTED [facility] Last Admin: 08/28/16 10:00 Dose: 175 mls/hr Levofloxacin/Dextrose 750 mg/ (Premix) 150 mls @ 100 mls/hr IV Q24H [facility] Last Admin: 08/27/16 18:18 Dose: Not Given Piperacillin Sod/Tazobactam (Sod 3.375 gm/ Sodium Chloride) 50 mls @ 100 mls/ hr IV Q6H [facility] Last Admin: 08/30/16 03:40 Dose: 100 mls/hr Vancomycin HCl 1,500 mg/ (Sodium Chloride) 500 mls @ 333.333 mls/hr IV Q12H [facility] Last Admin: 08/29/16 05:23 Dose: 333.333 mls/hr Magnesium Sulfate 4 gm/ Premix 100 mls @ 50 mls/hr IV ONETIME ONE Stop: 08/27/16 18:54 Last Admin: 08/27/16 18:18 Dose: Not Given Levofloxacin/Dextrose 750 mg/ (Premix) 150 mls @ 100 mls/hr IV Q24H [facility] Last Admin: 08/30/16 20:56 Dose: 100 mls/hr Magnesium Sulfate 4 gm/ Premix 100 mls @ 50 mls/hr IV ONETIME ONE Stop: 08/27/16 19:59 Last Admin: 08/27/16 18:00 Dose: 50 mls/hr Potassium Chloride/Sodium Chloride (Normal Saline With 20 Meq Kcl) 1,000 mls @ 150 mls/hr IV ASDIRECTED [facility] Last Admin: 08/29/16 08:24 Dose: 150 mls/hr Magnesium Sulfate 2 gm/ Premix 50 mls @ 50 mls/hr IV ONETIME ONE Stop: 08/28/16 11:24 Last Admin: 08/28/16 10:58 Dose: 50 mls/hr Vancomycin HCl 1,500 mg/ (Sodium Chloride) 500 mls @ 333.333 mls/hr IV Q8H [facility] Vancomycin HCl 1,500 mg/ (Sodium Chloride) 500 mls @ 333.333 mls/hr IV Q8H [facility] Last Admin: 08/31/16 05:10 Dose: 333.333 mls/hr Lactated Ringer's (Ringers, Lactated) 1,000 mls @ 100 mls/hr IV ASDIRECTED [facility] Last Admin: 08/30/16 03:39 Dose: 100 mls/hr Lactated Ringer's (Ringers, Lactated) 1,000 mls @ 50 mls/hr IV ASDIRECTED [facility] Last Admin: 08/31/16 16:54 Dose: 50 mls/hr Insulin Aspart (Novolog) 0 unit SUBCUT TIDASSM [facility] PRN Reason: Protocol Last Admin: 08/28/16 19:54 Dose: Not Given Insulin Aspart (Novolog) 0 unit SUBCUT TIDAC [facility] PRN Reason: Protocol Last Admin: 09/01/16 11:42 Dose: 2 units Insulin Glargine (Lantus Solostar) 10 units SUBCUT BEDTIME [facility] Last Admin: 08/29/16 20:36 Dose: 10 units Insulin Glargine (Lantus Solostar) 10 units SUBCUT ONETIME ONE Stop: 08/28/16 18:46 Last Admin: 08/28/16 19:25 Dose: 10 units Insulin Glargine (Lantus Solostar) 12 units SUBCUT BEDTIME [facility] Last Admin: 08/31/16 21:54 Dose: 12 units Levofloxacin (Levaquin) 500 mg PO Q24H [facility] Last Admin: 09/01/16 10:38 Dose: 500 mg Loperamide HCl (Imodium) 2 mg PO ASDIRECTED PRN PRN Reason: Diarrhea Metformin HCl (Glucophage) 500 mg PO ONETIME ONE Stop: 08/27/16 16:10 Last Admin: 08/27/16 17:25 Dose: Not Given Ondansetron HCl (Zofran) 4 mg IVPUSH Q4H PRN PRN Reason: Nausea Last Admin: 08/29/16 10:09 Dose: 4 mg Potassium Chloride (Potassium Chloride) 40 meq PO ONETIME ONE Stop: 08/28/16 10:17 Last Admin: 08/28/16 10:58 Dose: 40 meq Potassium Chloride (Potassium Chloride) 40 meq PO ONETIME ONE Stop: 08/28/16 15:26 Last Admin: 08/28/16 16:08 Dose: 40 meq Potassium Chloride (Klor-Con M20) 40 meq PO ONETIME ONE Stop: 08/31/16 07:06 Last Admin: 08/31/16 07:44 Dose: 40 meq Potassium Chloride (Klor-Con M20) 40 meq PO ONETIME ONE Stop: 09/01/16 10:05 Last Admin: 09/01/16 10:37 Dose: 40 meq Sodium Chloride (Saline Flush) 10 ml FLUSH ASDIRECTED PRN PRN Reason: Keep Vein Open Last Admin: 08/27/16 14:38 Dose: 10 ml Sodium Chloride (Saline Flush) 2.5 ml FLUSH ASDIRECTED PRN PRN Reason: Keep Vein Open Last Admin: 08/27/16 14:39 Dose: 2.5 ml Sodium Chloride (Saline Flush) 10 ml FLUSH ASDIRECTED PRN PRN Reason: Keep Vein Open Last Admin: 08/27/16 14:39 Dose: 10 ml Sodium Chloride (Saline Flush) 2.5 ml FLUSH ASDIRECTED PRN PRN Reason: Keep Vein Open Last Admin: 08/27/16 14:38 Dose: 2.5 ml Vancomycin HCl (Pharmacy To Dose - Vancomycin) 1 dose .XX ASDIRECTED [facility] - Exam Quality Assessment: Reports: DVT prophylaxis General: Reports: alert, oriented, cooperative, no acute distress HEENT: Reports: Pupils equal, Pupils reactive, EOMI, Mucous membr. moist/pink Neck: Reports: supple, trachea midline, no JVD Lungs: Reports: Clear to auscultation, Normal respiratory effort Cardiovascular: Reports: Regular Rate, Regular Rhythm, No Murmurs Abdomen: Reports: bowel sounds present, soft, no tenderness, no distension Back Exam: Reports: normal inspection, full range of motion Extremities: Reports: no edema, normal pulses Skin: Reports: warm, dry, intact Neurological: Reports: no new focal deficit Psy/Mental Status: Reports: alert, normal affect, normal mood *Q Meaningful Use (DIS) - VTE *Q VTE Criteria *Q: - Stroke *Q Stroke Criteria *Q: - AMI *Q AMI Criteria *Q: <Arvind Moffett - Last Filed: 09/03/16 20:05> Discharge Summary - Patient Summary/Data Consults: Consultations 08/30/16 09:46 Consult to Diabetic Nurse Specialist [CONS] Routine OT Evaluation and Treatment [CONS] Routine PT Evaluation and Treatment [CONS] Routine - Patient Data Vitals - Most Recent: Last Vital Signs Temp 36.2 C 09/01/16 11:32 Pulse 89 09/01/16 11:32 Resp 20 09/01/16 11:32 BP 132/70 09/01/16 11:32 Pulse Ox 98 09/01/16 12:00 Med Orders - Current: Current Medications Discontinued Medications Acetaminophen (Tylenol Extra Strength) 1,000 mg PO ONETIME ONE Stop: 08/27/16 14:34 Last Admin: 08/27/16 14:37 Dose: 1,000 mg Acetaminophen (Tylenol) 650 mg PO Q6H PRN PRN Reason: Pain Last Admin: 08/29/16 20:09 Dose: 650 mg Albuterol/Ipratropium (Duoneb 3.0-0.5 Mg/3 Ml) 3 ml NEB Q4HRRT PRN PRN Reason: Dyspnea Calcium Carbonate/Glycine (Tums) 1,000 mg PO DAILY ONE Stop: 08/30/16 06:59 Last Admin: 08/30/16 07:59 Dose: 1,000 mg Enoxaparin Sodium (Lovenox) 40 mg SUBCUT DAILY [facility] Last Admin: 08/27/16 18:18 Dose: Not Given Enoxaparin Sodium (Lovenox) 40 mg SUBCUT Q24H [facility] Last Admin: 08/31/16 17:18 Dose: 40 mg Sodium Chloride (Normal Saline) 1,000 mls @ 999 mls/hr IV .Bolus ONE Stop: 08/27/16 15:07 Last Admin: 08/27/16 14:15 Dose: 999 mls/hr Sodium Chloride (Normal Saline) 1,000 mls @ 999 mls/hr IV STAT ONE Stop: 08/27/16 15:08 Last Admin: 08/27/16 14:39 Dose: 999 mls/hr Piperacillin Sod/Tazobactam (Sod 4.5 gm/ Sodium Chloride) 100 mls @ 100 mls/hr IV ONETIME ONE Stop: 08/27/16 16:22 Last Admin: 08/27/16 16:22 Dose: 100 mls/hr Vancomycin HCl 1,000 mg/ (Dextrose/Water) 250 mls @ 167 mls/hr IV ONETIME ONE Stop: 08/27/16 16:53 Last Admin: 08/27/16 17:26 Dose: Not Given Sodium Chloride (Normal Saline) 1,000 mls @ 999 mls/hr IV STAT ONE Stop: 08/27/16 16:25 Last Admin: 08/27/16 16:23 Dose: 999 mls/hr Vancomycin HCl 1 gm/ Sodium (Chloride) 250 mls @ 167 mls/hr IV ONETIME ONE Stop: 08/27/16 17:59 Last Admin: 08/27/16 17:27 Dose: Not Given Sodium Chloride (Normal Saline) 1,000 mls @ 175 mls/hr IV ASDIRECTED [facility] Last Admin: 08/28/16 10:00 Dose: 175 mls/hr Levofloxacin/Dextrose 750 mg/ (Premix) 150 mls @ 100 mls/hr IV Q24H [facility] Last Admin: 08/27/16 18:18 Dose: Not Given Piperacillin Sod/Tazobactam (Sod 3.375 gm/ Sodium Chloride) 50 mls @ 100 mls/ hr IV Q6H [facility] Last Admin: 08/30/16 03:40 Dose: 100 mls/hr Vancomycin HCl 1,500 mg/ (Sodium Chloride) 500 mls @ 333.333 mls/hr IV Q12H [facility] Last Admin: 08/29/16 05:23 Dose: 333.333 mls/hr Magnesium Sulfate 4 gm/ Premix 100 mls @ 50 mls/hr IV ONETIME ONE Stop: 08/27/16 18:54 Last Admin: 08/27/16 18:18 Dose: Not Given Levofloxacin/Dextrose 750 mg/ (Premix) 150 mls @ 100 mls/hr IV Q24H [facility] Last Admin: 08/30/16 20:56 Dose: 100 mls/hr Magnesium Sulfate 4 gm/ Premix 100 mls @ 50 mls/hr IV ONETIME ONE Stop: 08/27/16 19:59 Last Admin: 08/27/16 18:00 Dose: 50 mls/hr Potassium Chloride/Sodium Chloride (Normal Saline With 20 Meq Kcl) 1,000 mls @ 150 mls/hr IV ASDIRECTED [facility] Last Admin: 08/29/16 08:24 Dose: 150 mls/hr Magnesium Sulfate 2 gm/ Premix 50 mls @ 50 mls/hr IV ONETIME ONE Stop: 08/28/16 11:24 Last Admin: 08/28/16 10:58 Dose: 50 mls/hr Vancomycin HCl 1,500 mg/ (Sodium Chloride) 500 mls @ 333.333 mls/hr IV Q8H [facility] Vancomycin HCl 1,500 mg/ (Sodium Chloride) 500 mls @ 333.333 mls/hr IV Q8H [facility] Last Admin: 08/31/16 05:10 Dose: 333.333 mls/hr Lactated Ringer's (Ringers, Lactated) 1,000 mls @ 100 mls/hr IV ASDIRECTED [facility] Last Admin: 08/30/16 03:39 Dose: 100 mls/hr Lactated Ringer's (Ringers, Lactated) 1,000 mls @ 50 mls/hr IV ASDIRECTED [facility] Last Admin: 08/31/16 16:54 Dose: 50 mls/hr Insulin Aspart (Novolog) 0 unit SUBCUT TIDAC [facility] PRN Reason: Protocol Last Admin: 08/28/16 19:54 Dose: Not Given Insulin Aspart (Novolog) 0 unit SUBCUT TIDAC [facility] PRN Reason: Protocol Last Admin: 09/01/16 11:42 Dose: 2 units Insulin Glargine (Lantus Solostar) 10 units SUBCUT BEDTIME [facility] Last Admin: 08/29/16 20:36 Dose: 10 units Insulin Glargine (Lantus Solostar) 10 units SUBCUT ONETIME ONE Stop: 08/28/16 18:46 Last Admin: 08/28/16 19:25 Dose: 10 units Insulin Glargine (Lantus Solostar) 12 units SUBCUT BEDTIME [facility] Last Admin: 08/31/16 21:54 Dose: 12 units Levofloxacin (Levaquin) 500 mg PO Q24H [facility] Last Admin: 09/01/16 10:38 Dose: 500 mg Loperamide HCl (Imodium) 2 mg PO ASDIRECTED PRN PRN Reason: Diarrhea Metformin HCl (Glucophage) 500 mg PO ONETIME ONE Stop: 08/27/16 16:10 Last Admin: 08/27/16 17:25 Dose: Not Given Ondansetron HCl (Zofran) 4 mg IVPUSH Q4H PRN PRN Reason: Nausea Last Admin: 08/29/16 10:09 Dose: 4 mg Potassium Chloride (Potassium Chloride) 40 meq PO ONETIME ONE Stop: 08/28/16 10:17 Last Admin: 08/28/16 10:58 Dose: 40 meq Potassium Chloride (Potassium Chloride) 40 meq PO ONETIME ONE Stop: 08/28/16 15:26 Last Admin: 08/28/16 16:08 Dose: 40 meq Potassium Chloride (Klor-Con M20) 40 meq PO ONETIME ONE Stop: 08/31/16 07:06 Last Admin: 08/31/16 07:44 Dose: 40 meq Potassium Chloride (Klor-Con M20) 40 meq PO ONETIME ONE Stop: 09/01/16 10:05 Last Admin: 09/01/16 10:37 Dose: 40 meq Sodium Chloride (Saline Flush) 10 ml FLUSH ASDIRECTED PRN PRN Reason: Keep Vein Open Last Admin: 08/27/16 14:38 Dose: 10 ml Sodium Chloride (Saline Flush) 2.5 ml FLUSH ASDIRECTED PRN PRN Reason: Keep Vein Open Last Admin: 08/27/16 14:39 Dose: 2.5 ml Sodium Chloride (Saline Flush) 10 ml FLUSH ASDIRECTED PRN PRN Reason: Keep Vein Open Last Admin: 08/27/16 14:39 Dose: 10 ml Sodium Chloride (Saline Flush) 2.5 ml FLUSH ASDIRECTED PRN PRN Reason: Keep Vein Open Last Admin: 08/27/16 14:38 Dose: 2.5 ml Vancomycin HCl (Pharmacy To Dose - Vancomycin) 1 dose .XX ASDIRECTED [facility] *Q Meaningful Use (DIS) - VTE *Q VTE Criteria *Q: - Stroke *Q Stroke Criteria *Q: - AMI *Q AMI Criteria *Q: - Free Text/Narrative Note: I have examined the patient. I have discussed findings and treatment plan with resident. I agree with the assessment and plan outlined in the resident's note.
== END 2016-09-01 14:05 | disposition home or self-care (01) | DRG 720 ==
LOC: MW.ED 13:37 → MW.ICU 15:25 → MW.MS 08-31 11:04
PROVIDERS: ADMIT Internal Medicine; ATTEND Internal Medicine
DX: A41.50 Gram-negative sepsis, unspecified (principal); J15.0 Pneumonia due to Klebsiella pneumoniae; E83.51 Hypocalcemia; I48.92 Unspecified atrial flutter; E11.9 Type 2 diabetes mellitus without complications; I10 Essential (primary) hypertension; K21.9 Gastro-esophageal reflux disease without esophagitis; Z79.899 Other long term (current) drug therapy; Z79.4 Long term (current) use of insulin; Z85.46 Personal history of malignant neoplasm of prostate; R93.5 Abnormal findings on diagnostic imaging of other abdominal regions, including retroperitoneum
CPT/HCPCS: 36415; 51703; 71010; 71010-26; 71250; 71250-26; 74176; 74176-26; 80048; 80053; 80202; 81001; 82962; 83036; 83605; 83735; 84132; 84484; 85025; 87040; 87077; 87086; 87186; 87324; 87804; 93005; 96361; 96365; 97110-GP; 97162-GP; 97165-GO; 97530-GP; 97802; 99285; 99285-25; A9270-GY; J1650; J1815-GY; J1956; J2405; J2543; J3370; J3475; J3480; J7030; J7040; J7050; J7120